=== PATIENT | male | born 1965 | race Caucasian/White ===

== ENCOUNTER 2020-09-03 16:14 | Outpatient (CLI) | payer BC, SELFPAY | END 2020-09-03 16:15 | disposition home or self-care (01) | LOC: ANHCOVIDVC 16:14 | PROVIDERS: PCP Family Medicine | DX: Z23 Encounter for immunization (principal) | CPT/HCPCS: 0001A; 91300 ==

== ENCOUNTER 2020-09-24 16:13 | Outpatient (CLI) | payer BC, SELFPAY | END 2020-09-24 16:14 | disposition home or self-care (01) | LOC: ANHCOVIDVC 16:13 | PROVIDERS: PCP Family Medicine | DX: Z23 Encounter for immunization (principal) | CPT/HCPCS: 0002A; 91300 ==

== ENCOUNTER 2024-10-10 18:12 | Inpatient (IN) | payer OTHER, SELFPAY ==
[2024-10-10] VITALS (12 sets, daily range): BP systolic 131–153; BP diastolic 68–86; PULSE 74–88; RESP 8–20; TEMP 36.4–37.6; O2SAT 94–100; BMI 25.5; BMI 25.4
--- NOTE | 2024-10-10 12:05 | PC.NURSE ---
Report to the Outpatient Waiting Room, entrance under the green pavilion located off [facility], at time _1330_ on date _[phone]_. Planned Procedure Time: _1530_.? Time changes happen often and if your time is changed the preop area will call you the afternoon before. - You and your visitor will be asked to self-screen and do not enter if you have any COVID symptoms. Please call surgeon if you need to reschedule. - A mask is optional within the hospital at this time. Patients may have clear liquids (water, carbonated beverages, clear teas, apple juice) until 3 hours prior to surgery with a maximum of 20 ounces. - No food from midnight until time of surgery and no smoking, or chewing tobacco (or any form of nicotine). No chewing gum, candy or mints. Take only the following medications with a SIP of water on the morning of surgery: ___Amlodipine and Metoprolol. Acetaminophen ok if needed.____ DO NOT STOP ANY OF YOUR OTHER PRESCRIPTION MEDICATIONS PRIOR TO SURGERY EXCEPT THE FOLLOWING Hold all vitamins and supplements for 3 days per anesthesiologist. Medications to discontinue per physician Date to take last dose Please no make-up, nail luxembourger, hairspray, perfume, deodorant, or body powder the day of surgery.? No jewelry (including any body piercings) or valuables the day of surgery, leave them at home.? Please take a shower or bath the night before, or the morning of, surgery with an antibacterial soap.? Wear comfortable, loose fitting clothing.? - Jewelry must be removed prior to entering the operating room.? Rings and piercings that are not removed may be cut off. - The hospital will not accept responsibility for valuables.? - Please leave all valuables, including medications, at home the day of surgery. If you are going home after surgery, a licensed drivers license examiner must drive you home.? - NO public transportation without another adult if you receive anesthesia. - We recommend that an adult stay with you for 24 hours following discharge. - We also recommend that you do not drive, make important decision, drink alcoholic beverages, or take any drugs that were not prescribed by your health care provider for at least 24 hours after your discharge time. Follow any additional instructions given to you from your surgeon. Telephone instructions given to __René___and asked if any additional questions and then verbalized understanding. Patient advised to call surgeon office or pre surgery nurse liaison [phone] if any additional questions.
--- OUTSIDE RECORDS SUMMARY | 2024-10-10 13:31 | XMS_ITS | Clinical Summary ---
Author Organization [facility] Address [address] [place] [address] Care Team Providers Care Wastewater Project Manager Name Role Phone Florian Gregg MD Primary Care Provider [phone] Source Comments [facility],non-owned Affiliates and Associated Physician Practices is amultiple site organization consisting of ambulatory clinics and hospital sitesin [place], [place], [place] and [place]. This disclosure is being madepursuant to the Care Everywhere program and may not contain all information available regarding this patient. 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 Gender Identity Not on file Sexual Orientation Not on file Plan of Treatment Health Maintenance Due Date Last Done Comments COLOGUARD (AGES 45-75) - COL ON CA SCREENING 1965 COLON MONITORING 1965 COLONOSCOPY - COLON CA SCREENING 1965 CT COLONOGRAPHY - COLON CA SCREENING 1965 Colorectal Cancer Screening 1965 FIT - COLON CA SCREENING 1965 FLEX SIG - COLON CA SCREENING 1965 LIPID TESTING 1965 HIV SCREENING 1980 HEPATITIS C SCREENING 09/09/1983 DTAP/TDAP/TD VACCINES (1 - Tdap) 1984 HEPATITIS B VACCINE (1 of 3 - 19+ 3-dose series) 1984 PNEUMOCOCCAL VACCINE 50+ (1 of 1 - PCV) 09/14/2015 ZOSTER VACCINE (1 of 2) 09/14/2015 COVID-19 VACCINE ( - 2023-2 5 season) 2024 DEPRESSION SCREENING 05/22/2024 INFLUENZA VACCINE (Season Ended) 2025 HIB VACCINE Aged Out No longer eligi ble based on patient's age to complete this topic HPV VACCINE Aged Out No longer eligi ble based on patient's age to complete this topic MENINGOCOCCAL (Group B) VACC INE SHARED DECISION-MAKING Aged Out No longer eligibl e based on patient's age to complete this topic MENINGOCOCCAL GROUPS A/C/Y/W VACCINE Aged Out No longer eligible b ased on patient's age to complete this topic [place] [address] [place] [address] Care Teams Wastewater Project Manager Relationship Specialty Start Date End Date Florian Gregg MD [address] [place] [address] PCP - General 09/10/09
--- OUTSIDE RECORDS SUMMARY | 2024-10-10 13:32 | XMS_ITS | Encounter Summary ---
Author Organization [facility] Address [address] [place] [address] Care Team Providers Care Pharmacist In Charge Owner Name Role Phone Florian Gregg MD Primary Care Provider [phone] Encounter Details Date Type Department Care Team (Late st Contact Info) Description 06/06/2023 Lab Requisition [facility] - DermPath Lab [address], [facility] [place] [address] Jaci Teixeira MD [address] [facility] [address] [place] [address] Social History Tobacco Use Types Packs/Day Years Used Date Smoking Tobacco: Never Assessed Sex and Gender Information Value Date Recorded Sex Assigned at Not on file 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 DermPath Lab Received: 06/07/2023 07:34 AM Pathologist: Rosa Hart MD Specimen: Skin, right forearm 11:04 AM OFFICE MACHINES SALES REPRESENTATIVE DERMATOPATHOLOGY LABORATORY Final Diagnosis Specimen A. SKIN, right forearm: SOLAR LENTIGO (L81.4) 11:04 AM [facility] DERMATOPATHOLOGY LABORATORY at [address] [facility] Clinical History R/O Melanoma Nevus Irregular Color 11:04 AM [facility] DERMATOPATHOLOGY LABORATORY Gross Description Specimen A: Received is one formalin filled container labeled with the patient's name and designated right forearm. The specimen consists of a shave biopsy measuring 6x3x1 mm. Jar 0. 11:04 AM [facility] DERMATOPATHOLOGY LABORATORY Microscopic Description Specimen A. SKIN, right forearm: There is orthokeratosis. There is a slight increase in epidermal thickness with lentiginous buds of hyperpigmented keratinocytes. The number of melanocytes is only mildly increased. In the dermis, there is basophilic degeneration of elastic fibers. 11:04 AM [facility] DERMATOPATHOLOGY LABORATORY Disclaimer An external and internal positive and negative controls are appropriate for the histochemical, immunohistochemical and immunofluorescence stain(s) in this case (if any), except where stated explicitly. The performance characteristics of the stain(s) cited in this report were developed and its performance characteristic determined by the Dermatopathology Laboratory at [facility], directed by Dr. Chana Heard. These tests need not be, and therefore are not, approved by the [place] Food and Drug Administration. The tests are used for clinical purposes. Billing Codes Specimen Charges Stain Charges 57661 1 11:04 AM [facility] DERMATOPATHOLOGY LABORATORY Embedded Images 11:04 AM [facility] DERMATOPATHOLOGY LABORATORY Pathology/Cytolo gy TISSUE SPECIMEN FROM SKIN / Unknown 06/06/2023 10:06 AM OFFICE MACHINES SALES REPRESENTATIVE 06/07/2023 7:34 AM [facility] us Jaci Teixeira MD LAB - PATHOLOGY/CYTOLOGY OR DERABLES Final Result DERMATOPATHOLOGY LABORATORY [facility] - Department of Dermatology [address], [address] [phone] documented in this encounter Visit Diagnoses Not on filedocumented in this encounter Care Teams Pharmacist In Charge Owner Relationship Specialty Start Date End Date Florian Gregg MD [address] [place] [address] PCP - General 09/10/09 documented as of this encounter
--- OUTSIDE RECORDS SUMMARY | 2024-10-10 13:32 | XMS_ITS | Clinical Summary ---
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
--- OUTSIDE RECORDS SUMMARY | 2024-10-10 13:32 | XMS_ITS | Clinical Summary ---
Author Organization [facility] Address [address], [facility] [address] [place] [address] Phone Care Team Providers Care Supervisor Blueprinting And Photocopy Name Role Phone Stephany Elmore Primary Care Provider [phone] Allergies Active Allergy Reactions Criticality Noted Date Comments Penicillins Hives,Rash Low 10/03/1977 Medications MULTIPLE VITAMINS PO Take 1 Tablet by mouth daily. Active irbesartan (AVAPRO) 300 MG Tablet Take 300 mg by mouth. 12/07/2013 Active OMEGA-3 FATTY ACIDS PO Take 1 Capsule by mouth daily. Active amLODIPine (NORVASC) 5 MG Tablet 07/16/2024 Active Metoprolol Succinate 50 MG Capsule ER 24 Hour Sprinkle 07/27/2024 Activ e triamcinolone (KENALOG) 0.1 % Cream 07/16/2024 Active Active Problems Problem Noted Date Diagnosed Date Lung mass 07/16/2024 HTN (hypertension) 06/13/2024 Neuroendocrine neoplasm of lung 06/13/2024 Encounters Date Type Department Care Team Description 09/12/2024 1:30 PM CDT Initial Consult [facility] [address] [address] Elissa Nuñez LCPC Need for emotional support (Primary Dx) 09/12/2024 Travel 08/15/2024 10:35 AM CDT Lab [facility] [address] [address] Lab, [facility] [place] Neuroendocrine neoplasm of lung 08/15/2024 10:15 AM CDT Office Visit [facility] [address] [phone] Mariel Schofield APRN, PAT Neuroendocrine neoplasm of lung (Primary Dx) 08/15/2024 Travel 08/05/2024 9:00 AM CDT Lab [facility] [address] [phone] Lab, [facility] [place] Neuroendocrine neoplasm of lung 08/05/2024 Results Follow-Up [facility] [address] [phone] Samy Vela MD CMP (COMPREHENSIVE METABOLIC PANEL) 08/05/2024 Travel 08/02/2024 Results Follow-Up [facility] [address] [phone] Samy Vela MD IRON W/ IRON BINDING CAPACITY [place], CMP (COMPREHENSIVE METABOLIC PANEL), CBC WITH AUTO DIFF [place] 08/01/2024 3:15 PM CDT Lab [facility] [address] [phone] Lab, [facility] [place] Neuroendocrine neoplasm of lung 08/01/2024 3:00 PM CDT Office Visit [facility] [address] [address] Samy Vela MD Neuroendocrine neoplasm of lung (Primary Dx) 08/01/2024 Travel 07/31/2024 Telephone [facility] [address] [address] Samy Vela MD Canopy Call / OV and path report 07/17/2024 Results Follow-Up [facility] [address] [place] [phone] TUMOR IMAGING, NEUROENDOCRINE from Last 3 Months Family History Medical History Relation Name Comments Breast Cancer Mother Breast Cancer Sister Relation Name Status Comments Father Mother Sister Social History Tobacco Use Types Packs/Day Years Used Date Smoking Tobacco: Never Smokeless Tobacco: Current Chew Tobacco Cessation:Ready to Q uit: Not Asked; Counseling Given: Not Answered Alcohol Use Standard Drinks/Week Comments Yes 0 (1 standard drink = 0.6 oz pur e alcohol) socially Sex and Gender Information Value Date Recorded Sex Assigned at Not on file Legal Sex Male 10:55 PM CDT Gender Identity Not on file Sexual Orientation Not on file Last Filed Vital Signs Vital Sign Reading Time Taken Comments Blood Pressure 162/86 08/15/2024 10:11 AM CDT Pulse 74 08/15/2024 10:11 AM CDT Temperature 36.7 C (98 F) 08/15/2024 10:11 AM CDT Respiratory Rate 18 08/15/2024 10:1 1 AM CDT Oxygen Saturation 98% 08/15/2024 10: 11 AM CDT Inhaled Oxygen Concentration - - Weight 87.5 kg (192 lb 12.8 oz) 025 10:11 AM CDT Height 182.9 cm (6') 08/15/2024 10:11 AM CDT Body Mass Index 26.15 08/15/2024 10:11 AM CDT Plan of Treatment Upcoming Encounters Date Type Department Care Team (Late st Contact Info) Description 11/14/2024 10:00 AM CDT Office Visit [facility] [address] [address] Samy Vela MD [facility] [address] [place] [address] Health Maintenance Due Date Last Done Comments Hepatitis C Virus (HCV) Screening 1965 Hepatitis B Immunization (1 of 3 - 19+ 3-dose series) 1984 Pneumococcal Immunization (50+ years) (1 of 2 - PCV) 1984 Zoster Immunization (1 of 2) 1984 Colonoscopy 2010 Colorectal Cancer Screening 2010 Cologuard 09/14/2015 Immunochemical Fecal Occult Blood 09/14/2015 PSA Discussion 2020 SARS-COV-2 Immunization ( season) 2024 05/28/2021, 09/24/2020, 09/03/2020 Influenza Immunization (Season Ended) 2025 05/07/2021, 05/08/2020, 03/30/2018, Additional history exists Respiratory Syncytial Virus (RSV) Immunization (Adult) (1 - 1-dose 75+ series) 2040 TdaP Immunization Completed 03/30/2018 Human Papillomavirus (HPV) Immunization Aged Out No longer eligible based on patient's age to complete this topic Meningococcal Immunization (ACWY) Aged Out No longer eligible based on patient's age to complete this topic Rotavirus Immunization Aged Out No lo nger eligible based on patient's age to complete this topic Procedures Procedure Name Priority Date/Time Associated Diagnosis Comments CBC WITH AUTO DIFF [place] Routine 08/15/2024 11:07 AM CDT CMP (COMPREHENSIVE METABOLIC PANEL) Routine 08/15/2024 11:07 AM CDT Neuroendocrine neoplasm of lung CMP (COMPREHENSIVE METABOLIC PANEL) Routine 08/05/2024 8:58 AM CDT Neuroendocrine neoplasm of lung CBC WITH AUTO DIFF [place] Routine 08/01/2024 3:14 PM CDT CMP (COMPREHENSIVE METABOLIC PANEL) Routine 08/01/2024 3:14 PM CDT Neuroendocrine neoplasm of lung IRON W/ IRON BINDING CAPACITY [place] Routine 08/01/2024 3:14 PM CDT Neuroendocrine neoplasm of lung FERRITIN Routine 08/01/2024 3:14 PM CDT Neuroendocrine neoplasm of lung from Last 3 Months Results * (ABNORMAL) CBC WITH AUTO DIFF [place] (08/15/2024 11:07 AM CDT) Only the most recent of2 resultswithin the time period is included. WBC 5.6 4.0 - 10.0 10*3/uL [facility] HGB 13.7 13.7 - 17.5 g/dL [facility] HCT 41.1 40.1 - 51.0 % [facility] PLT 194 163 - 369 10*3/uL [facility] MPV 9.8 9.4 - 12.4 fL [facility] RBC 4.60(L) 4.63 - 6.08 10*6/uL [facility] MCV 89 79 - 95 fL [facility] MCH 29.8 25.6 - 32.2 pg [facility] MCHC 33.3 32.2 - 36.5 g/dL [facility] RDW 13.8 11.6 - 14.4 % [facility] Neutrophils % 56.6 36.0 - 66.0 % [facility] Lymphocytes % 21.7 19.0 - 40.0 % [facility] Monocytes % 11.4 4.1 - 12.1 % [facility] Eosinophils % 9.2(H) 0.0 - 3.5 % [facility] Basophils % 0.7 0.0 - 1.0 % [facility] Absolute Neutrophils 3.2 1.4 - 6.6 10*3/uL [facility] Absolute Lymphocytes 1.2 0.8 - 4.0 10*3/uL [facility] Absolute Monocytes 0.6 0.2 - 1.2 10*3/uL [facility] Absolute Eosinophils 0.5(H) 0.0 - 0.4 10*3/uL [facility] Absolute Basophils 0.0 0.0 - 0.1 10*3/uL [facility] 08/15/2024 11:0 7 AM CDT us Mariel Schofield BLUE SPLIT TRIMMER, BLOCK CUTTER LAB SEND OUTS Fin al Result [facility] [place] [address], * CMP (COMPREHENSIVE METABOLIC PANEL) (08/15/2024 11:07 AM CDT) Only the most recent of3 resultswithin the time period is included. Glucose 99 70 - 105 mg/dL [facility] Blood Urea Nitrogen 20 7 - 25 mg/dL [facility] Creatinine 0.8 0.7 - 1.3 mg/dL [facility] Sodium 137 136 - 145 mEq/L [facility] Potassium 4.0 3.5 - 5.1 mEq/L [facility] Chloride 103 98 - 107 mEq/L [facility] Bicarbonate 28 21 - 31 mEq/L [facility] Total Bilirubin 1.0 0.3 - 1.0 mg/dL [facility] Alk. Phosphatase 67 34 - 104 U/L [facility] Aspartate Aminotransferase 14 13 - 39 U/L [facility] Alanine Aminotransferase 18 7 - 52 U/L [facility] Total Protein 6.9 6.4 - 8.9 g/dL [facility] Albumin 4.5 3.5 - 5.7 g/dL [facility] Calcium 9.8 8.6 - 10.3 mg/dL [facility] Anion Gap 10.0 7.0 - 15.0 mEq/L [facility] Globulin 2.4 2.0 - 3.5 g/dL [facility] EGFR 102 >60 ml/min/1. 73m2 [facility] Comment: This eGFR is calculated using 2020 CKD-EPI Creatinine equation without race modifier based on the NKF-ASN task force recommendations Equation: wZAN=310*min(SCr/k,1)a*max(SCr/k,1)-1.200*0.9938Age*1.012 (if female), where SCr is serum creatinine, k is 0.7 for females and 0.9 for males, and a is -0.241 for females and -0.302 for males Blood 08/15/2024 11:0 7 AM CDT Narrative [facility] - 08/15/2024 11:55 AM CDT Release to patient->Immediate IS THE PATIENT REQUIRED TO BE FASTING FOR 8 HOURS?->No us Mariel Schofield APRN, CNP CHEMISTRY ORDERABLE S Final Result Performing Organization Address [facility]/ZIP Co de Phone Number [facility] [place] [address], * IRON W/ IRON BINDING CAPACITY [place] (08/01/2024 3:14 PM CDT) IRON 88 50 - 212 ug/dL [facility] UIBC 234 155 - 355 ug/dL [facility] TIBC 322 261 - 478 ug/dl [facility] % Saturation 27 20 - 50 % [facility] Blood 08/01/2024 3:14 PM CDT [facility] - 08/01/2024 3:57 PM CDT Release to patient->Immediate Samy Vela MD LAB SEND OUTS Final Result Performing Organization Address [facility]/ZIP Co de Phone Number [facility] [place] [address], [place] [phone] * (ABNORMAL) FERRITIN (08/01/2024 3:14 PM CDT) Ferritin 777(H) 24 - 336 ng/mL [facility] Blood 08/01/2024 3:14 PM CDT Davian [facility] - 08/02/2024 2:41 PM CDT Release to patient->Immediate Samy Vela MD CHEMISTRY ORDERABLES Final R esult Performing Organization Address [facility]/ZIP Co de Phone Number [facility] [place] [address], [place] [phone] from Last 3 Months Insurance [facility] Care Teams Supervisor Blueprinting And Photocopy Relationship Specialty Start Date End Date Stephany Elmore PA [address] [place] [address] PCP - General Physician Technical Analyst 06/06/24
--- OUTSIDE RECORDS SUMMARY | 2024-10-10 13:32 | XMS_ITS | Referral Summary ---
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
--- OUTSIDE RECORDS SUMMARY | 2024-10-10 13:32 | XMS_ITS | Encounter Summary ---
Author Organization [facility] Address [address] [facility] [place] [address] Care Team Providers Care Food Assembler Kitchen Name Role Phone Florian Gregg MD Primary Care Provider [phone] Encounter Details Date Type Department Care Team (Late st Contact Info) Description 10/12/2022 Lab Requisition [facility] - DermPath Lab [address], [facility] [place] [phone] Kemi Watts DO [address] [facility] [address] [place] [address] Social History Tobacco Use Types Packs/Day Years Used Date Smoking Tobacco: Never Assessed Sex and Gender Information Value Date Recorded Sex Assigned at Not on file 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 Gender Identity Not on file Sexual Orientation Not on file documented as of this encounter Plan of Treatment Not on file documented as of this encounter Procedures Procedure Name Priority Date/Time Associated Diagnosis Comments DERMATOPATHOLOGY Routine 10/12/2022 10:0 2 AM CDT documented in this encounter Results * DERMATOPATHOLOGY (10/12/2022 10:02 AM CDT) Case Report Dermatopathology Report Case: [id number] Authorizing Provider: Kemi Watts DO Collected: 10/12/2022 10:02 AM Ordering Location: [facility] DermPath Lab Received: 10/13/2022 09:18 AM Pathologist: Rosa Hart MD Specimen: Skin, right upper back 5:32 PM CDT DERMATOPATHOLOGY LABORATORY Final Diagnosis Specimen A. SKIN, right upper back: HYPERPLASTIC (HYPERTROPHIC) ACTINIC KERATOSIS, PIGMENTED AND INFLAMED (L57.0) POST-INFLAMMATORY PIGMENT ALTERATION (L81.9) EPIDERMAL NECROSIS SUGGESTIVE OF EXCORIATION (L98.499) (see microscopic description) 3 5:32 PM T DERMATOPATHOLOGY LABORATORY at 1732 CDT Clinical History PIG AK R/O MM 5:32 PM CDT DERMATOPATHOLOGY LABORATORY Gross Description Specimen A: Received is one formalin filled container labeled with the patient's name and designated right upper back. The specimen consists of a shave biopsy measuring 7x7x1 mm. Jar 0. 5:32 PM T DERMATOPATHOLOGY LABORATORY Microscopic Description Specimen A. SKIN, right upper back: There is hyperkeratosis alternating with parakeratosis. There is epidermal hyperplasia with disorderly maturation of keratinocytes with nuclear pleomorphism confined to the lower half of the epidermis. There is prominent pigmentation in some of the keratinocytes. Sections show abundant melanin within melanophages around the superficial vascular plexus. There is a lymphohistiocytic infiltrate within the dermis. The epidermis is focally necrotic and covered with a scale-crust. There is fibrin at the base. 5:32 PM CDT DERMATOPATHOLOGY LABORATORY Disclaimer An external and internal positive and negative controls are appropriate for the histochemical, immunohistochemical and immunofluorescence stain(s) in this case (if any), except where stated explicitly. The performance characteristics of the stain(s) cited in this report were developed and its performance characteristic determined by the Dermatopathology Laboratory at [facility], directed by Dr. Chana Heard. These tests need not be, and therefore are not, approved by the [place] Food and Drug Administration. The tests are used for clinical purposes. Billing Codes Specimen Charges Stain Charges 17584 1 3 5:32 PM CDT DERMATOPATHOLOGY LABORATORY Embedded Images 3 5:32 PM CDT DERMATOPATHOLOGY LABORATORY Pathology/Cytolo gy TISSUE SPECIMEN FROM SKIN / Unknown 10/12/2022 10:02 AM CDT 10/13/2022 9:18 AM CDT Kemi Watts DO LAB - PATHOLOGY/CYTOLOGY ORDERABLES Final Result DERMATOPATHOLOGY LABORATORY [facility] - Department of Dermatology [facility] Specialized Medicine [address] [place] [address], [address]rd [address] [phone] documented in this encounter Visit Diagnoses Not on filedocumented in this encounter Care Teams Food Assembler Kitchen Relationship Specialty Start Date End Date Florian Gregg MD [address] [facility] [address] [facility] [address] [place] [address] PCP - General 09/10/09 documented as of this encounter
--- NOTE | 2024-10-10 13:57 | ECG_ITS ---
Test Date: 2024-10-10 14:09:24 Measurements Intervals [place] Rate: 81 P: 41 CA: 179 QRS: 31 QRSD: 96 T: 10 QT: 369 QTc: 428 Interpretive Statements SINUS RHYTHM No previous ECG available for comparison Electronically Signed On 10-10-2024 14:22:51 CDT by Sawyer Streeter M.D.
[2024-10-10 14:38] LABS: Basophils Absolute Auto 0.1 K/mm3 (0.0-0.1); Basophils Percent Auto 0.3 % (0.2-1.2); Eosinophils Absolute Auto 0.1 K/mm3 (0-0.3); Eosinophils Percent Auto 0.5 % (0-4.4); Hematocrit 41.7 % (42.0-52.0); Hemoglobin 13.5 g/dL (14.0-18.0); Immature Granulocyte Absolute 0.16 K/mm3 (0.00-0.031); Immature Granulocyte Percent A 0.6 % (0-0.5); Lymphocytes Absolute Auto 1.08 K/mm3 (0.9-3.2); Lymphocytes Percent Auto 4.4 % (18.3-44.2); Mean Corpuscular HGB Conc 32.4 g/dl (32-36); Mean Corpuscular Hemoglobin 29.3 pg (26-34); Mean Corpuscular Volume 90.7 fl (80-100); Mean Platelet Volume 9.3 fl (7.4-10.4); Monocytes Absolute Auto 1.4 K/mm3 (0.1-0.6); Monocytes Percent Auto 5.8 % (2.6-8.5); Neutrophils Absolute Auto 21.9 K/mm3 (1.3-6.7); Neutrophils Percent Auto 88.4 % (45.5-73.1); Platelet Count Result 331 k/mm3 (150-375); Red Cell Distribution Width 13.2 % (11.5-14.5); White Blood Count 24.7 K/mm3 (4.5-10.0)
--- NOTE | 2024-10-10 15:06 | P.PNAN_ITS ---
Anes - Initial Pre Proc Eval Procedure: Operation Date: 10/10/24 15:30 Proposed Procedures p Incision and Drainage of Left Hip Abscess Times Two - Abilio Villa MD Date/Time: 10/10/24 15:06 Surgeon: Abilio Villa MD Pre Op Diagnosis: left hip abscess x2 Patient Data Age: 59 Gender: M Height: 1.83 m Weight: 85 kg Last Vital Signs Temp 37.6 C 10/10/24 14:52 Pulse 88 10/10/24 14:52 BP 145/86 H 10/10/24 14:52 Pulse Ox 100 10/10/24 14:52 O2 Del Method Room Air 10/10/24 14:52 Allergies Allergy/AdvReac Type Severity Reaction Status Date / Time Penicillins Allergy Unknown Hives Verified 10/10/24 14:49 Home Medications ?Medication ?Instructions ?Recorded ?Confirmed ?Type irbesartan 300 mg tablet 300 mg PO DAILY #90 tabs 06/21/24 10/10/24 Rx amlodipine 5 mg tablet (Norvasc) 5 mg PO DAILY #90 tabs 07/16/24 10/10/24 Rx metoprolol succinate 50 mg 50 mg PO DAILY 10/10/24 10/10/24 History tablet,extended release 24 hr Laboratory Tests 10/10/24 10/10/24 14:34 14:47 WBC 24.7 H K/mm3 (4.5-10.0) RBC 4.60 M/mm3 (4.6-6.20) Hgb 13.5 L g/dL (14.0-18.0) Hct 41.7 L % (42.0-52.0) MCV 90.7 fl (80-100) MCH 29.3 pg (26-34) MCHC 32.4 g/dl (32-36) RDW 13.2 % (11.5-14.5) Plt Count 331 k/mm3 (150-375) MPV 9.3 fl (7.4-10.4) Immature Gran % (Auto) 0.6 H % (0-0.5) Neut % (Auto) 88.4 H % (45.5-73.1) Lymph % (Auto) 4.4 L % (18.3-44.2) [place] % (Auto) 5.8 % (2.6-8.5) Eos % (Auto) 0.5 % (0-4.4) Baso % (Auto) 0.3 % (0.2-1.2) Lymph # (Auto) 1.08 K/mm3 (0.9-3.2) [place] # (Auto) 1.4 H K/mm3 (0.1-0.6) Eos # (Auto) 0.1 K/mm3 (0-0.3) Baso # (Auto) 0.1 K/mm3 (0.0-0.1) Abs Immat Gran (auto) 0.16 H K/mm3 (0.00-0.031) Absolute Neuts (auto) 21.9 H K/mm3 (1.3-6.7) Absolute Nucleated RBC 0.000 K/mm3 (0.0-0.012) Nucleated RBC % 0.0 % (0.0-0.2) Nasal MRSA (PCR) Pending Patient hx anesthesia problems: none Family hx anesthesia problems: none Results Review: All pre-operative results and documents have been reviewed as part of the pre- operative evaluation. [facility] Past Medical History Medical History Neuroendocrine carcinoma of lung Pure hypercholesterolemia, unspecified HTN (hypertension) Surgical History Surgical History Status post Mohs surgery basal cell carcinoma left cheek 2009 H/O shoulder surgery rotator cuff 1989 Family History Family History Father No problems noted. Mother No problems noted. Social History Social History Smoking status: Never smoker Alcohol intake: current Drinks per week: 7 Substance use: never Substance use type: does not use Do You Feel Safe in your Home?: Yes Lack of Transportation: No Lack of Food: Never True Current Housing: I Have Housing Concerned About Future Housing: No Difficulty Paying Gas/Electric Bills: No Difficulty Paying for Meds: No Currently Unemployed: No Education: Bachelor's Degree Difficulty w/ Childcare or Family Care: No Living arrangements: with family Occupation/Education: retired Gender identity (if verbalized by the patient): Male Sexual Orientation (if Verbalized by the Patient): Straight or Heterosexual Spiritual care concerns: No Anes - Eval Final PreProcedure Day of Procedure 10/10/24 15:06 Patient weight: overweight Heart: regular rate and rhythm Lungs: clear to auscultation Airway: Mallampati scale class II Neurological: alert and oriented Last oral intake: >/= 8 hours ASA classification: III Emergent: no Anesthetic plan: proceed Anesthesia type and monitoring: general LMA and standard monitoring Results Review: All pre-operative results and documents have been reviewed as part of the pre- operative evaluation. Informed Consent: The patient's anesthetic plan and its attendant risks and benefits were discussed with the patient/family/POA. Questions were solicited and answers provided to the satisfaction of the patient/family/POA.
[2024-10-10] MEDS: LACTATED RINGERS 1,000 ML 30 ML IV CONT ×2 (15:10→16:48)
--- NOTE | 2024-10-10 15:17 | WPDHPUPDATE1 ---
History and Physical Update Update Date/Time: 10/10/24 15:17 History and Physical has been reviewed, including an updated exam of the patient. There are NO changes in the patient's condition. Risks, benefits, and alternatives have been discussed and questions answered. Patient agrees to proceed with procedure.
[2024-10-10] MEDS: ceFAZolin 2 GM/D5W 50 ML 2 GM/50 ML BAG IVPB (15:43)
[2024-10-10 16:11] LABS: MRSA (PCR) NOT DETECTED (NOT DETECTE)
[2024-10-10] MEDS: BUPIVACAINE/EPINEPHRINE 0.5% 50 ML VIAL 30 ML INFILTRATE (16:15)
--- NOTE | 2024-10-10 16:25 | SUR.OPER ---
Left buttocks 5 x 3 x 5 - 1.7 cm deep
--- NOTE | 2024-10-10 16:29 | SUR.OPER ---
Normalgel Ag Silver Atimicrobial Wound Gel to left buttocks and leg
--- NOTE | 2024-10-10 16:34 | SUR.OPER ---
Left thigh 3.5 1.2 - 1 cm deep
--- NOTE | 2024-10-10 16:36 | SUR.OPER ---
Trocanteric Ulcer 1.5x1.0x0.5 cm
[2024-10-10] MEDS: fentaNYL CITRATE INJ (*CRX) 100 MCG/2 ML VIAL 25 MCG IV PUSH ×2 (17:51→17:54)
[2024-10-10] MEDS: VANCOMYCIN 1,250 MG/NS 250 ML 1,250 MG/250 ML BAG 166.67 MG IVPB (18:11)
--- NOTE | 2024-10-10 18:21 | ADMGEN ---
This patient, René Nunez, was admitted to 3 Med Surg Room 315-02. Patient/family oriented to hospital policies and general routines including ID bracelet, bed and alarms, visiting hours, pain management, procedures, bathroom and other care routines, personal items, smoking policy, room service/diet, and visiting hours. Information on how to activate the Rapid Response Team has been discussed. Patient/Family are encouraged to report perceived risks to care and to ask questions if they do not understand what they are told or what they should do.
[2024-10-10 18:55] LABS: Estimated CRCL calculation 102 ml/min; Estimated Glomerular Filt Rate > 60
--- NOTE | 2024-10-10 19:57 | W.PM.PROC2 ---
Procedure Note - Detailed Date of Procedure 10/10/24 Pre-op Diagnosis left hip abscess x2 Post-op Diagnosis Other (Necrotizing soft tissue infection left hip) Procedure Performed Excisional debridement left hip skin subcutaneous and muscle 30 cm cubed. Surgeon Abilio Villa MD Anesthesia General (LMA) Indications Patient presented 7 days ago for an office visit regarding an abscess or infected wound on his left hip. He was noted to have necrotic tissue and a necrotizing soft tissue infection which already appeared to be limited to the necrotic tissue present. I debrided the necrotic tissue as well as any additional tissue compromised by subcutaneous tracking. This was done in the office. This wound was healing well but patient called the office this morning saying he had to new infections in the same area and they were very painful. He came to the office and was noted to have 2 abscesses only a few cm away from the original infection. The left buttocks wound had some purulent fluid and was cultured in the office. He is taken to surgery now for drainage of these abscesses. Findings Both of these were actually recurrences of the necrotizing toss soft tissue infection that resulted in his initial wound. Excisional debridement of skin subcutaneous and some muscle was required to remove the infected tissue and purulent fluid. Even some of the initial wound which appeared to be pink healthy and healing nicely showed some evidence of tunneling at its distal aspect and required some additional debridement. Description of Procedure Patient was taken to surgery and anesthesia was introduced. He was placed in right lateral decubitus positions of left hip area was easily available. The dressings placed in the office earlier today were completely removed. Prep and drape was carried out. I started with the thigh infection. I excised the necrotic apex of this wound. Purulent fluid was found but also tracking was found. I cultured the wound for Gram stain aerobes and anaerobes. I probed the wound and found the direction of the tracking. I opened the wound further over the undermined skin. There was quite a bit of purulence and liquefaction necrosis in the area. I had to excise overlying skin to eradicate the infection. Subcutaneous and some muscle also was excised. I circumferentially went around the wound applying pressure and finding more tunneling and purulent fluid. I continued the excisional debridement until there was no further purulent fluid I could express. I then turned my attention to the buttocks infection. There was necrotic area on the apex of this infection as well. I removed the necrotic area. Purulent fluid was seen and was cultured. There was numerous pockets and tracking on this wound much worse than the hip wound. I unroof the various tracts and debrided additional skin. I applied pressure to the outer margins of the wound and found more tracking by purulent fluid coming forth. I continued excising more of the skin subcutaneous and some muscle until there was no purulent fluid seen or expressed by palpation circumferentially around the wound. I then looked closely at the initial wound which was pink and healing. I did notice some purulent drainage from the posterior aspect of this wound to. I probed this and found some tracking posteriorly. I opened an area to excise this infection and tract. The size of this debridement was 1.5 x 1 x 0.5 cm of skin subcutaneous and muscle. The buttocks infection, much larger was 5 x 3 x 1.7 cm. The proximal thigh infection debridement was 3.5 x 1.2 x 1 cm. All these sizes added together came to 30.45 cm 3. Hemostasis was achieved at all wounds. The thigh and buttocks wounds were packed with 2 in iodoform Nu Gauze. The greater trochanter initial wound was dressed with silver gel and 4 x 4 gauze. 4x4s and ABDs were then placed over all the wounds. Medipore tape was used. The patient was returned to a supine position and transferred to recovery in good condition. Sponge and needle counts were correct x2. Estimated Blood Loss -30 Drains No Packing Yes (2 in iodoform Nu Gauze) Pathology Other (Cultures sent from each new wound) Complications None Condition Stable Disposition PACU [facility] Billing Surgery - Charge Forward: Surgery Billing (Excisional debridement skin, subcutaneous, muscle left hip 30 cm cubed)
[2024-10-10] MEDS: MEROPENEM 1 GM/NS 100 ML 1 GM/100 ML BAG IVPB (20:02)
[2024-10-10] MEDS: FAMOTIDINE 20 MG TABLET PO (20:03)
[2024-10-10] MEDS: CLINDAMYCIN 900 MG/D5W 50 ML 900 MG/50 ML PIGGYBACK 50 MG IVPB (20:38)
[2024-10-10] MEDS: VANCOMYCIN 1,000 MG/NS 250 ML 1,000 MG/250 ML BAG 125 MG IVPB (21:36)
[2024-10-10] MEDS: LACTATED RINGERS 1,000 ML 100 ML IV CONT (23:50)
[2024-10-11 03:57] VITALS: BP 114/70; PULSE 69; RESP 20; TEMP 36.6; O2SAT 98
[2024-10-11] MEDS: MEROPENEM 1 GM/NS 100 ML 1 GM/100 ML BAG IVPB ×3 (05:51→23:55)
[2024-10-11 06:07] LABS: Hematocrit 34.9 % (42.0-52.0); Hemoglobin 11.3 g/dL (14.0-18.0); Mean Corpuscular HGB Conc 32.4 g/dl (32-36); Mean Corpuscular Hemoglobin 29.2 pg (26-34); Mean Corpuscular Volume 90.2 fl (80-100); Mean Platelet Volume 9.4 fl (7.4-10.4); Platelet Count Result 322 k/mm3 (150-375); Red Blood Count 3.87 M/mm3 (4.6-6.20); Red Cell Distribution Width 13.4 % (11.5-14.5); White Blood Count 19.9 K/mm3 (4.5-10.0)
[2024-10-11 06:22] LABS: Prothrombin Time 13.8 Seconds (11.1-14.7)
[2024-10-11 06:23] LABS: Partial Thromboplastin Time 33.9 Seconds (22.3-36.8)
[2024-10-11 06:30] LABS: Alanine Aminotransferase 16 U/L (6-50); Albumin Level 3.7 g/dL (3.5-5.1); Alkaline Phosphatase 66 U/L (38-126); Anion Gap 9 mmol/L (4-12); Aspartate Amino Transferase 19 U/L (17-59); Bilirubin,Total 0.4 mg/dL (0.2-1.3); Blood Urea Nitrogen 15 mg/dL (9-20); Calcium 8.8 mg/dL (8.4-10.2); Carbon Dioxide 24 mmol/L (22-30); Chloride 102 mmol/L (98-107); Estimated CRCL calculation 98 ml/min; Estimated Glomerular Filt Rate > 60; Glucose 121 mg/dL (65-110); Potassium 4.4 mmol/L (3.4-5.0); Sodium 135 mmol/L (137-145)
[2024-10-11] MEDS: CLINDAMYCIN 900 MG/D5W 50 ML 900 MG/50 ML PIGGYBACK 50 MG IVPB ×3 (06:30→22:46)
[2024-10-11 06:42] LABS: CRP 11.7 mg/dL (<1.0)
[2024-10-11] MEDS: VANCOMYCIN 1,500 MG/NS 500 ML 1,500 MG/500 ML BAG 125 MG IVPB (07:16)
[2024-10-11 07:57] VITALS: BP 142/76; PULSE 78; RESP 18; TEMP 36.2; O2SAT 99
[2024-10-11] MEDS: METOPROLOL SUCCINATE EXT REL 50 MG TABCR PO (08:24)
[2024-10-11] MEDS: ENOXAPARIN 40 MG/0.4 ML SYRINGE SUB-Q (08:24)
[2024-10-11] MEDS: IRBESARTAN 150 MG TABLET 300 MG PO (08:24)
[2024-10-11] MEDS: FAMOTIDINE 20 MG TABLET PO ×2 (08:24→21:19)
[2024-10-11] MEDS: amLODIPine BESYLATE 5 MG TABLET PO (08:36)
[2024-10-11 11:57] VITALS: BP 137/80; PULSE 62; RESP 18; TEMP 36.3; O2SAT 100
--- NOTE | 2024-10-11 13:13 | P.PNINF_ITS ---
Pharmacy ID Consult Stewardship Interventions Pharmacy ID Note: Subjective Pharmacy was consulted by Dr. Villa regarding infectious diseases for René Nunez. René Nunez is a 59 year old M with concerns regarding necrotizing soft tissue wound infection. Background The patient is currently receiving clindamycin D1 of coverage as 2 doses in, meropenem and vancomycin IV also D1. The patient's PMH includes recent debridement of infected wound with necrotizing component. Then recently, per discussion with consulting provider, patient had two more wounds appear similar with tunneling properties and involving some nerotization of the soft tissues. Additionally, the patient went for debridement on 10/10 of these two infected areas and the previously debrided area received additional debridement. Excision involved skin and muscle with infected tissue and purulent fluid. WBC improved to 19.9 from 24.7 yesterday. Microbiology: 10/10: Blood culture: Pending 10/10: Blood culture: Pending 10/10: Wound culture - Buttock: Growth Pending - Rare GPCs in clusters and Rare W BC seen in culture 10/10: Wound culture - Left Thigh: Growth Pending - Rare GPCs in clusters and Moderate WBC seen in culture Assessment/Recommendation/Discussion Spoke briefly with consulting provider. Patient currently receiving Meropenem, Vancomycin and IV Clindamycin for necrotizing fasciitis and other actively necrotizing SSTI for the coverage including S. aureus including MRSA, S. pyogenes, and Clostridial species, while also providing coverage for other anaerobic pathogens, and Vibrio/Aeromonas spp. The IV clindamycin is on board for an anti-toxin effect that can be used by certain bacteria to further degrade skin and as this patient is s/p debridement and not in active shock will put 6 total dose duration for clindamycin (48 hours of coverage). Continue meropenem and vancomycin broad-spectrum coverage and de-escalate based on cultures and clinical improvement. Notably, gram stain of both wound cultures are showing GPC's - likely pointing towards a Staphylococcus etiology - but given early - follow for confirmation that this is monomicrobial. Will continue to follow. Please reach out if any additional information comes to light or should you have any questions. Thank you for the interesting consult. Moses Singh, PharmD Infectious Disease/Antimicrobial Stewardship Pharmacist 10/11/24; 1313 WBC 19.9 K/mm3 (4.5-10.0) H 10/11/24 05:46 Creatinine 0.77 mg/dL (0.7-1.3) 10/11/24 05:46 Estim Creat Clear Calc 98 ml/min 10/11/24 05:46
--- NOTE | 2024-10-11 14:33 | P.PNGS_ITS ---
Progress Note: A&P Assessment and Plan (1) Necrotizing soft tissue infection: Code(s): M79.89 - Other specified soft tissue disorders Status: Acute Assessment and Plan: New sites infection debrided yesterday and look good--no new necrosis or purulent drainage noted. Initial wound pink and healing. Discussed antibiotics with Moses GLEASON, pharmacist. Continue present antibiotics. Taper when cultures back. Want to avoid further recurrences. Gram stain suggests staphlyococci. Cont to loosely pack new wounds with iodoform nugauze, initial wound with silver gel, both daily. WBC down to 13.9, CRP 11.7. (2) Open wound of left hip: Code(s): S71.002A - Unspecified open wound, left hip, initial encounter Status: Acute Assessment and Plan: Continue wound care as above. Subjective Subjective Date/Time Seen: 10/11/24 14:33 Post Op day: 1 Patient reports: no new complaints, still having pain, tolerating a regular diet, voiding w/o difficulty and afebrile Exam Const: General: cooperative, comfortable, alert and awake Extrem: Left lower extremity: hip/thigh (wounds look good, no new purulence or necrosis. Serosanguinous drainage) Details: tenderness; no ecchymosis and no crepitus Objective Data Vital Signs Vital Signs: Vital Signs - 24 hr 10/10/24 14:52 10/10/24 16:48 10/10/24 17:03 Temperature 37.6 C 37.4 C Pulse Rate 88 83 82 Respiratory Rate 13 8 L Blood Pressure 145/86 H 133/80 140/75 Pulse Oximetry 100 100 99 Oxygen Delivery Room Air Simple Face Mask Simple Face Mask Oxygen Flow Rate 8 8 10/10/24 17:18 10/10/24 17:33 10/10/24 17:45 Temperature 37.1 C Pulse Rate 80 81 78 Respiratory Rate 9 L 14 14 Blood Pressure 146/81 H 143/75 H 142/86 H Pulse Oximetry 100 100 100 Oxygen Delivery Room Air Room Air Room Air Oxygen Flow Rate 10/10/24 18:00 10/10/24 18:53 10/10/24 18:57 Temperature 36.4 C L 36.7 C Pulse Rate 77 79 80 Respiratory Rate 12 16 Blood Pressure 144/75 H 153/77 H 131/68 Pulse Oximetry 100 97 94 Oxygen Delivery Room Air Oxygen Flow Rate 10/10/24 19:57 10/10/24 20:00 10/10/24 23:57 Temperature 36.9 C 36.5 C Pulse Rate 80 80 74 Respiratory Rate 20 20 20 Blood Pressure 131/80 138/73 Pulse Oximetry 94 94 98 Oxygen Delivery Room Air Oxygen Flow Rate 10/11/24 03:57 10/11/24 07:57 10/11/24 08:20 Temperature 36.6 C 36.2 C L Pulse Rate 69 78 Respiratory Rate 20 18 Blood Pressure 114/70 142/76 H Pulse Oximetry 98 99 Oxygen Delivery Room Air Oxygen Flow Rate 10/11/24 11:57 Temperature 36.3 C L Pulse Rate 62 Respiratory Rate 18 Blood Pressure 137/80 Pulse Oximetry 100 Oxygen Delivery Oxygen Flow Rate Intake/Output Intake/Output: Intake & Output 10/08/24 10/09/24 10/10/24 10/11/24 23:59 23:59 23:59 23:59 Intake Total 900 2440 Balance 900 2440 Meds/Results Medications: Active Medications Generic Name Dose Route Start Last Admin Trade Name Freq PRN Reason Stop Dose Admin Acetaminophen 500 mg 10/10/24 18:12 Acetaminophen 500 Mg Tablet PO Q6H PRN Pain Rated 1-3 Amlodipine Besylate 5 mg 10/11/24 09:00 10/11/24 08:36 Amlodipine Besylate 5 Mg Tablet PO 5 mg DAILY GREG Administration Enoxaparin Sodium 40 mg 10/11/24 09:00 10/11/24 08:24 Enoxaparin 40 Mg/0.4 Ml Syringe SUB-Q 40 mg DAILY GREG Administration Famotidine 20 mg 10/10/24 21:00 10/11/24 08:24 Famotidine 20 Mg Tablet PO 20 mg Q12HR GREG Administration Ibuprofen 800 mg in 200 mls @ 400 mls/hr 10/10/24 18:12 Caldolor 800 Mg/200 Ml IVPB Q6H PRN Breakthrough Pain Rated 1-3 or NPO Meropenem 1 gm in 100 mls @ 200 mls/hr 10/11/24 06:00 10/11/24 13:15 IVPB 200 mls/hr Q8H GREG Administration Clindamycin Phosphate 900 mg in 50 mls @ 50 mls/hr 10/11/24 06:00 10/11/24 13:51 Cleocin 900 Mg/D5w 50 Ml IVPB 10/12/24 14:59 50 mls/hr Q8H GREG Administration Vancomycin HCl 1,500 mg in 500 mls @ 250 mls/hr 10/11/24 08:00 10/11/24 11:15 Vancomycin 1,500 Mg/Ns 500 Ml IVPB Infused Q12H GREG Infusion Irbesartan 300 mg 10/11/24 09:00 10/11/24 08:24 Irbesartan 150 Mg Tablet PO 300 mg DAILY GREG Administration Metoprolol Succinate 50 mg 10/11/24 09:00 10/11/24 08:24 Metoprolol Succinate Ext Rel 50 Mg Tabcr PO 50 mg DAILY GREG Administration Morphine Sulfate 1 mg 10/10/24 18:12 Morphine Sulfate (*Crx) 2 Mg/Ml Inj IV PUSH Q2H PRN Breakthrough Pain Rated 4-6 or NPO Morphine Sulfate 2 mg 10/10/24 18:16 Morphine Sulfate (*Crx) 2 Mg/Ml Inj IV PUSH Q2H PRN Breakthrough Pain Rated 7-10 or NPO Ondansetron HCl 4 mg 10/10/24 18:12 Ondansetron Inj 4 Mg/2 Ml Vial IV PUSH Q4H PRN Nausea And Vomiting Oxycodone/Acetaminophen 1 tablet 10/10/24 18:12 Oxycodone/Acetaminophen (*Crx) 5-325 Mg Tablet PO Q4H PRN Pain Rated 4-6 Oxycodone/Acetaminophen 1 tab 10/10/24 18:12 Oxycodone/Acetaminophen (*Crx) 10-325 Mg Tablet PO Q6H PRN Pain Rated 7-10 Labs Labs: Laboratory Results - last 24 hr 10/10/24 10/10/24 10/10/24 14:34 14:47 18:38 WBC 24.7 H RBC 4.60 Hgb 13.5 L Hct 41.7 L MCV 90.7 MCH 29.3 MCHC 32.4 RDW 13.2 Plt Count 331 MPV 9.3 Immature Gran % (Auto) 0.6 H Neut % (Auto) 88.4 H Lymph % (Auto) 4.4 L [place] % (Auto) 5.8 Eos % (Auto) 0.5 Baso % (Auto) 0.3 Lymph # (Auto) 1.08 [place] # (Auto) 1.4 H Eos # (Auto) 0.1 Baso # (Auto) 0.1 Abs Immat Gran (auto) 0.16 H Absolute Neuts (auto) 21.9 H Absolute Nucleated RBC 0.000 Nucleated RBC % 0.0 PT INR APTT Sodium Potassium Chloride Carbon Dioxide Anion Gap BUN Creatinine 0.74 Estim Creat Clear Calc 102 Estimated GFR > 60 Glucose Calcium Total Bilirubin AST ALT Alkaline Phosphatase C-Reactive Protein Total Protein Albumin Nasal MRSA (PCR) Not detected 10/11/24 05:46 WBC 19.9 H RBC 3.87 L Hgb 11.3 L Hct 34.9 L MCV 90.2 MCH 29.2 MCHC 32.4 RDW 13.4 Plt Count 322 MPV 9.4 Immature Gran % (Auto) Neut % (Auto) Lymph % (Auto) [place] % (Auto) Eos % (Auto) Baso % (Auto) Lymph # (Auto) [place] # (Auto) Eos # (Auto) Baso # (Auto) Abs Immat Gran (auto) Absolute Neuts (auto) Absolute Nucleated RBC Nucleated RBC % PT 13.8 INR 1.0 APTT 33.9 Sodium 135 L Potassium 4.4 Chloride 102 Carbon Dioxide 24 Anion Gap 9 BUN 15 Creatinine 0.77 Estim Creat Clear Calc 98 Estimated GFR > 60 Glucose 121 H Calcium 8.8 Total Bilirubin 0.4 AST 19 ALT 16 Alkaline Phosphatase 66 C-Reactive Protein 11.7 H Total Protein 7.0 Albumin 3.7 Nasal MRSA (PCR)
[2024-10-11 15:57] VITALS: BP 128/70; PULSE 60; RESP 18; TEMP 36.1; O2SAT 100
[2024-10-11] MEDS: VANCOMYCIN 1,500 MG/NS 500 ML 1,500 MG/500 ML BAG 250 MG IVPB (19:56)
[2024-10-11 19:57] VITALS: BP 142/66; PULSE 65; RESP 16; TEMP 36.5; O2SAT 97
[2024-10-11 20:00] VITALS: O2SAT 97
[2024-10-12 01:00] VITALS: BP 141/71; PULSE 65; RESP 16; TEMP 36.4; O2SAT 97
[2024-10-12] MEDS: MEROPENEM 1 GM/NS 100 ML 1 GM/100 ML BAG IVPB ×3 (05:47→21:06)
[2024-10-12] MEDS: CLINDAMYCIN 900 MG/D5W 50 ML 900 MG/50 ML PIGGYBACK 50 MG IVPB ×2 (06:26→15:16)
[2024-10-12 06:51] VITALS: BP 142/76; PULSE 60; RESP 16; TEMP 36.6; O2SAT 99
[2024-10-12 07:10] LABS: Basophils Absolute Auto 0.1 K/mm3 (0.0-0.1); Basophils Percent Auto 0.8 % (0.2-1.2); Eosinophils Absolute Auto 0.3 K/mm3 (0-0.3); Eosinophils Percent Auto 3.9 % (0-4.4); Hematocrit 35.2 % (42.0-52.0); Hemoglobin 11.6 g/dL (14.0-18.0); Immature Granulocyte Absolute 0.03 K/mm3 (0.00-0.031); Immature Granulocyte Percent A 0.4 % (0-0.5); Lymphocytes Absolute Auto 2.11 K/mm3 (0.9-3.2); Lymphocytes Percent Auto 26.8 % (18.3-44.2); Mean Corpuscular Hemoglobin 29.7 pg (26-34); Mean Platelet Volume 9.5 fl (7.4-10.4); Monocytes Absolute Auto 0.7 K/mm3 (0.1-0.6); Monocytes Percent Auto 8.5 % (2.6-8.5); Neutrophils Absolute Auto 4.7 K/mm3 (1.3-6.7); Neutrophils Percent Auto 59.6 % (45.5-73.1); Platelet Count Result 267 k/mm3 (150-375); Red Blood Count 3.91 M/mm3 (4.6-6.20); Red Cell Distribution Width 13.3 % (11.5-14.5); White Blood Count 7.9 K/mm3 (4.5-10.0)
[2024-10-12 07:33] LABS: Anion Gap 8 mmol/L (4-12); Blood Urea Nitrogen 15 mg/dL (9-20); CRP 4.9 mg/dL (<1.0); Carbon Dioxide 30 mmol/L (22-30); Chloride 101 mmol/L (98-107); Estimated CRCL calculation 96 ml/min; Estimated Glomerular Filt Rate > 60; Glucose 94 mg/dL (65-110); Potassium 4.2 mmol/L (3.4-5.0); Sodium 139 mmol/L (137-145)
[2024-10-12 07:48] LABS: Vancomycin Trough 12.7 ug/mL (10.0-20.0)
[2024-10-12] MEDS: METOPROLOL SUCCINATE EXT REL 50 MG TABCR PO (09:03)
[2024-10-12] MEDS: amLODIPine BESYLATE 5 MG TABLET PO (09:03)
[2024-10-12] MEDS: IRBESARTAN 150 MG TABLET 300 MG PO (09:03)
[2024-10-12] MEDS: VANCOMYCIN 2,000 MG/NS 500 ML 2,000 MG/500 ML BAG 250 MG IVPB (09:03)
[2024-10-12] MEDS: FAMOTIDINE 20 MG TABLET PO ×2 (09:04→21:06)
[2024-10-12] MEDS: ENOXAPARIN 40 MG/0.4 ML SYRINGE SUB-Q (09:04)
--- NOTE | 2024-10-12 12:26 | P.PNGS_ITS ---
Progress Note: A&P Assessment and Plan (1) Necrotizing soft tissue infection: Code(s): M79.89 - Other specified soft tissue disorders Status: Acute Assessment and Plan: * Infection appears adequately debrided and controlled at this time. Cultures growing Staph aureus but final sensitivities pending. Continue local wound care. Possibly home in the next 1-2 days once sensitivities come back. (2) Open wound of left hip: Code(s): S71.002A - Unspecified open wound, left hip, initial encounter Status: Acute Assessment and Plan: Continue wound care as above. Subjective Subjective Date/Time Seen: 10/12/24 12:26 Interval history: Patient doing well. Dressing changed at bedside and he tolerated this. No worsening pain, fevers, or worsening redness. Exam Skin: Other: Left hip/thigh dressing changed. Good granulation tissue along each of the wound beds. Minimal serous drainage. No surrounding erythema or tracking. Objective Data Vital Signs Vital Signs: Vital Signs - 24 hr 10/11/24 15:57 10/11/24 19:57 10/11/24 20:00 Temperature 97.0 F L 97.7 F Pulse Rate 60 65 Respiratory Rate 18 16 Blood Pressure 128/70 142/66 H Pulse Oximetry 100 97 Oxygen Delivery Room Air 10/11/24 20:00 10/12/24 01:00 10/12/24 06:51 Temperature 97.6 F 97.8 F Pulse Rate 65 60 Respiratory Rate 16 16 Blood Pressure 141/71 H 142/76 H Pulse Oximetry 97 97 99 Oxygen Delivery Room Air 10/12/24 09:00 Temperature Pulse Rate Respiratory Rate Blood Pressure Pulse Oximetry Oxygen Delivery Room Air Intake/Output Intake/Output: Intake & Output 10/09/24 10/10/24 10/11/24 10/12/24 23:59 23:59 23:59 23:59 Intake Total 900 3520 600 Balance 900 3520 600 Meds/Results Medications: Active Medications Generic Name Dose Route Start Last Admin Trade Name Freq PRN Reason Stop Dose Admin Acetaminophen 500 mg 10/10/24 18:12 Acetaminophen 500 Mg Tablet PO Q6H PRN Pain Rated 1-3 Amlodipine Besylate 5 mg 10/11/24 09:00 10/12/24 09:03 Amlodipine Besylate 5 Mg Tablet PO 5 mg DAILY GREG Administration Enoxaparin Sodium 40 mg 10/11/24 09:00 10/12/24 09:04 Enoxaparin 40 Mg/0.4 Ml Syringe SUB-Q 40 mg DAILY GREG Administration Famotidine 20 mg 10/10/24 21:00 10/12/24 09:04 Famotidine 20 Mg Tablet PO 20 mg Q12HR GREG Administration Ibuprofen 800 mg in 200 mls @ 400 mls/hr 10/10/24 18:12 Caldolor 800 Mg/200 Ml IVPB Q6H PRN Breakthrough Pain Rated 1-3 or NPO Meropenem 1 gm in 100 mls @ 200 mls/hr 10/11/24 06:00 10/12/24 06:17 IVPB Infused Q8H GREG Infusion Clindamycin Phosphate 900 mg in 50 mls @ 50 mls/hr 10/11/24 06:00 10/12/24 06:26 Cleocin 900 Mg/D5w 50 Ml IVPB 10/12/24 14:59 50 mls/hr Q8H GREG Administration Vancomycin HCl 2,000 mg in 500 mls @ 250 mls/hr 10/12/24 09:00 10/12/24 09:03 Vancomycin 2,000 Mg/Ns 500 Ml IVPB 250 mls/hr Q12H GREG Administration Irbesartan 300 mg 10/11/24 09:00 10/12/24 09:03 Irbesartan 150 Mg Tablet PO 300 mg DAILY GREG Administration Metoprolol Succinate 50 mg 10/11/24 09:00 10/12/24 09:03 Metoprolol Succinate Ext Rel 50 Mg Tabcr PO 50 mg DAILY GREG Administration Morphine Sulfate 1 mg 10/10/24 18:12 Morphine Sulfate (*Crx) 2 Mg/Ml Inj IV PUSH Q2H PRN Breakthrough Pain Rated 4-6 or NPO Morphine Sulfate 2 mg 10/10/24 18:16 Morphine Sulfate (*Crx) 2 Mg/Ml Inj IV PUSH Q2H PRN Breakthrough Pain Rated 7-10 or NPO Ondansetron HCl 4 mg 10/10/24 18:12 Ondansetron Inj 4 Mg/2 Ml Vial IV PUSH Q4H PRN Nausea And Vomiting Oxycodone/Acetaminophen 1 tablet 10/10/24 18:12 Oxycodone/Acetaminophen (*Crx) 5-325 Mg Tablet PO Q4H PRN Pain Rated 4-6 Oxycodone/Acetaminophen 1 tab 10/10/24 18:12 Oxycodone/Acetaminophen (*Crx) 10-325 Mg Tablet PO Q6H PRN Pain Rated 7-10 Labs Labs: Laboratory Results - last 24 hr 10/12/24 07:00 WBC 7.9 RBC 3.91 L Hgb 11.6 L Hct 35.2 L MCV 90.0 MCH 29.7 MCHC 33.0 RDW 13.3 Plt Count 267 MPV 9.5 Immature Gran % (Auto) 0.4 Neut % (Auto) 59.6 Lymph % (Auto) 26.8 [place] % (Auto) 8.5 Eos % (Auto) 3.9 Baso % (Auto) 0.8 Lymph # (Auto) 2.11 [place] # (Auto) 0.7 H Eos # (Auto) 0.3 Baso # (Auto) 0.1 Abs Immat Gran (auto) 0.03 Absolute Neuts (auto) 4.7 Absolute Nucleated RBC 0.000 Nucleated RBC % 0.0 Sodium 139 Potassium 4.2 Chloride 101 Carbon Dioxide 30 Anion Gap 8 BUN 15 Creatinine 0.79 Estim Creat Clear Calc 96 Estimated GFR > 60 Glucose 94 Calcium 9.0 C-Reactive Protein 4.9 H Vancomycin Trough 12.7
[2024-10-12 14:00] VITALS: BP 150/79; PULSE 64; RESP 16; TEMP 36.5; O2SAT 99
[2024-10-12 20:00] VITALS: PULSE 61; RESP 13; O2SAT 99
[2024-10-12 20:25] VITALS: PULSE 64; O2SAT 97
[2024-10-12 20:41] VITALS: BP 160/84; PULSE 61; RESP 13; TEMP 36.4; O2SAT 99
[2024-10-12] MEDS: VANCOMYCIN 2,000 MG/NS 500 ML 2,000 MG/500 ML BAG 125 MG IVPB (21:51)
[2024-10-13 05:38] LABS: Basophils Absolute Auto 0.1 K/mm3 (0.0-0.1); Eosinophils Absolute Auto 0.5 K/mm3 (0-0.3); Eosinophils Percent Auto 6.6 % (0-4.4); Hematocrit 35.6 % (42.0-52.0); Hemoglobin 11.8 g/dL (14.0-18.0); Immature Granulocyte Absolute 0.03 K/mm3 (0.00-0.031); Immature Granulocyte Percent A 0.4 % (0-0.5); Lymphocytes Absolute Auto 1.99 K/mm3 (0.9-3.2); Lymphocytes Percent Auto 29.2 % (18.3-44.2); Mean Corpuscular HGB Conc 33.1 g/dl (32-36); Mean Corpuscular Hemoglobin 29.4 pg (26-34); Mean Corpuscular Volume 88.8 fl (80-100); Mean Platelet Volume 9.3 fl (7.4-10.4); Monocytes Absolute Auto 0.7 K/mm3 (0.1-0.6); Monocytes Percent Auto 9.8 % (2.6-8.5); Neutrophils Absolute Auto 3.6 K/mm3 (1.3-6.7); Platelet Count Result 346 k/mm3 (150-375); Red Blood Count 4.01 M/mm3 (4.6-6.20); Red Cell Distribution Width 13.1 % (11.5-14.5); White Blood Count 6.8 K/mm3 (4.5-10.0)
[2024-10-13] MEDS: MEROPENEM 1 GM/NS 100 ML 1 GM/100 ML BAG IVPB (05:45)
[2024-10-13 05:54] VITALS: BP 148/96; PULSE 63; RESP 12; TEMP 36.4; O2SAT 98
[2024-10-13 05:55] LABS: Anion Gap 7 mmol/L (4-12); Blood Urea Nitrogen 13 mg/dL (9-20); CRP 2.6 mg/dL (<1.0); Calcium 9.3 mg/dL (8.4-10.2); Carbon Dioxide 28 mmol/L (22-30); Chloride 102 mmol/L (98-107); Estimated CRCL calculation 98 ml/min; Estimated Glomerular Filt Rate > 60; Glucose 94 mg/dL (65-110); Potassium 4.1 mmol/L (3.4-5.0); Sodium 137 mmol/L (137-145)
[2024-10-13 07:58] VITALS: O2SAT 96
[2024-10-13] MEDS: ENOXAPARIN 40 MG/0.4 ML SYRINGE SUB-Q (08:32)
[2024-10-13] MEDS: VANCOMYCIN 2,000 MG/NS 500 ML 2,000 MG/500 ML BAG 250 MG IVPB (08:32)
[2024-10-13] MEDS: FAMOTIDINE 20 MG TABLET PO (08:33)
[2024-10-13] MEDS: amLODIPine BESYLATE 5 MG TABLET PO (08:33)
[2024-10-13] MEDS: IRBESARTAN 150 MG TABLET 300 MG PO (08:33)
[2024-10-13] MEDS: METOPROLOL SUCCINATE EXT REL 50 MG TABCR PO (08:33)
[2024-10-13 14:00] VITALS: BP 166/81; PULSE 68; RESP 16; TEMP 36.8; O2SAT 99
--- NOTE | 2024-10-13 14:51 | P.DS_ITS ---
DS: Admitting Diagnosis Discharge Date 10/13/2024 Admitting Diagnosis Abscess of left hip, necrotizing soft tissue infection, hypertension DS: Discharge Diagnosis Discharge Diagnosis (1) Abscess of hip, left: Code(s): L02.416 - Cutaneous abscess of left lower limb Status: Acute (2) Necrotizing soft tissue infection: Code(s): M79.89 - Other specified soft tissue disorders Status: Acute (3) HTN (hypertension): Qualifiers: Hypertension type: primary hypertension Qualified Code(s): I10 - Essential (primary) hypertension Code(s): I10 - Essential (primary) hypertension Status: Acute (4) Infection of skin due to methicillin resistant Staphylococcus aureus (MRSA): Code(s): L08.9 - Local infection of the skin and subcutaneous tissue, unspecified; B95.62 - Methicillin resistant Staphylococcus aureus infection as the cause of diseases classified elsewhere Status: Acute Plan Continue local wound care with daily dressing changes. Will discharge patient with clindamycin 300 mg p.o. q.6 hours x1 week. DS: Summary Hospital Course Reason for hospitalization: Necrotizing soft tissue infection, abscess of left hip Hospital Course: This is a 59-year-old man who presented with a worsening left hip infection. He had seen Dr. Villa in the office and underwent debridement of a soft tissue necrotizing infection involving the skin on 10/03/2024. On follow-up, his infection was worsening and therefore he was taken to surgery on 10/10/2024 for more extensive debridement. He was admitted afterwards for continued IV antibiotics and wound care. Cultures were taken at the time of surgery and patient was placed on vancomycin and meropenem. He was tolerating daily dressing changes and pain was gradually improving. There were no signs of ongoing necrotic infection after debridement on 10/10. Cultures and sensitivities came back on 10/13/2024 showing evidence of MRSA. This was sensitive to clindamycin. He was tolerating dressing changes and felt comfortable with continued wound care with his at home. He was discharged on 10/13/2024. Status at Discharge Functional status at discharge: independent ambulation Overall status at discharge: patient is back to baseline Time Spent with Patient Time attestation: Total time spent providing and/or coordinating discharge services: Time spent: Less than 30 minutes Exam Const: General: comfortable and no acute distress Orientation/consciousness: patient oriented x3 Resp: Effort & Inspection: normal respiratory effort Auscultation: clear to auscultation bilaterally Cardio: Rate: regular rate Rhythm: regular rhythm Heart sounds: S1 normal heart sound present and S2 normal heart sound present GI: Inspection: non-distended GI Palp: Yes Soft to palpation and No Tenderness to palpation present (GI) Skin: Other: 3 shallow separate left hip wounds with good granulation tissue and no tunneling. No surrounding erythema. DS: Data Data Completed and Pending Labs on day of discharge: Labs from last 24 hours 10/13/24 05:00 WBC 6.8 RBC 4.01 L Hgb 11.8 L Hct 35.6 L MCV 88.8 MCH 29.4 MCHC 33.1 RDW 13.1 Plt Count 346 MPV 9.3 Immature Gran % (Auto) 0.4 Neut % (Auto) 53.0 Lymph % (Auto) 29.2 [place] % (Auto) 9.8 H Eos % (Auto) 6.6 H Baso % (Auto) 1.0 Lymph # (Auto) 1.99 [place] # (Auto) 0.7 H Eos # (Auto) 0.5 H Baso # (Auto) 0.1 Abs Immat Gran (auto) 0.03 Absolute Neuts (auto) 3.6 Absolute Nucleated RBC 0.000 Nucleated RBC % 0.0 Sodium 137 Potassium 4.1 Chloride 102 Carbon Dioxide 28 Anion Gap 7 BUN 13 Creatinine 0.77 Estim Creat Clear Calc 98 Estimated GFR > 60 Glucose 94 Calcium 9.3 C-Reactive Protein 2.6 H Preliminary micro results at discharge 10/10/24 16:10 Anaerobic Culture - Preliminary Buttock 10/10/24 16:05 Anaerobic Culture - Preliminary Thigh Left 10/10/24 18:38 Blood Culture - Preliminary Blood 10/10/24 18:38 Blood Culture - Preliminary Blood Aerobic Culture w/Gram Stain Final 10/13/24-1038 Q SOURCE: LEFT BUTTOCK STATUS: FINAL ISOLATE 1: Moderate growth of Methicillin resistant Staphylococcus aureus (MRSA) Negative for inducible clindamycin resistance. NOTE: THIS RESULT IS FLAGGED ABNORMAL Organism 1 Methicillin Resis Staph Aureus THIS TEST WAS PERFORMED AT: [address] [address] NAYE ORDAZ MD 1. Methicillin Resis Staph Aureus M.I.C. RX --------- --- Vancomycin <=0.5 S Ciprofloxacin >=8 R Clindamycin <=0.25 S Levofloxacin 4 I Erythromycin >=8 R Gentamicin <=0.5 S Oxacillin R Oxacillin-resistant staphylococci are resistant to all currently available beta-lactam antimicrobial agents with the possible exception of ceftaroline. Tetracycline <=1 S Trimethoprim/Sulfamethoxazole <=10 S Moxifloxacin 2 R Legend: S = Susceptible I = Intermediate R = Resistant NS = Not susceptible SDD = Susceptible Dose Dependent * = Not Tested NR = Not Reported NN = See Therapy Comments Discharge Plan Discharge Attending physician on discharge: Abilio Villa Discharging Clinician: Nithin Hu Patient Disposition: Home Activity: may shower and other - see discharge instructions Diet: regular Wound Care Instructions: other - see discharge instructions Discharge Instructions: * May shower as long as wound is facing away from shower head * No strenuous exercise or lifting greater than 20 lb for the next 2 weeks * Change dressing daily with silver gel, iodoform gauze, 4 x 4 gauze, ABD pad, and tape * Call office for increasing redness, pain fevers, or other concerning findings with the wounds. Patient Instructions: Antibiotic Form Patient Language: Malay Stand Alone Forms: General Discharge Information Follow-up/Referrals: Abilio Villa MD [Physician] - Keep Reg. Scheduled Appt. Discharge Medications: New oxycodone-acetaminophen [Endocet] 5-325 mg tablet 1 tablet PO Q4H PRN (Reason: pain) Qty: 10 0RF clindamycin HCl [Cleocin HCl] 300 mg capsule 300 mg PO Q6H 7 Days Qty: 28 0RF Continued amlodipine [Norvasc] 5 mg tablet 5 mg PO DAILY Qty: 90 1RF metoprolol succinate 50 mg tablet extended release 24 hr 50 mg PO DAILY irbesartan 300 mg tablet 300 mg PO DAILY Qty: 90 1RF Date of admission: 10/11/24 10:06 Primary Care Provider: Silvio Haley Admitting Provider: Abilio Villa Attending physician on admission: Abilio Villa Condition: Improved
== END 2024-10-13 16:00 | disposition home or self-care (01) | DRG 581 ==
LOC: ANH3MEDSUR 18:14
PROVIDERS: Admitting Provider Surgery; PCP Family Medicine; Visit Provider Surgery
PROC: 0KBP0ZZ Excision of Left Hip Muscle, Open Approach (ICD-10-PCS; principal; 2024-10-10 15:30)
DX: L02.416 Cutaneous abscess of left lower limb (principal); B95.62 Methicillin resistant Staphylococcus aureus infection as the cause of diseases classified elsewhere; I10 Essential (primary) hypertension; Z85.828 Personal history of other malignant neoplasm of skin; Z85.118 Personal history of other malignant neoplasm of bronchus and lung
CPT/HCPCS: 36415; 80048; 80053; 80202; 82565; 85025; 85027; 85610; 85730; 86140; 87040; 87070; 87075; 87181; 87205; 87641; 93005; 96366; 96367; 96372; A9270; G0378; J0690; J1100; J1650; J2185; J2405; J2704; J3010; J3370; J7120

== ENCOUNTER 2024-10-17 08:18 | Outpatient (CLI) | payer OTHER, SELFPAY ==
--- OUTSIDE RECORDS SUMMARY | 2024-10-17 08:26 | XMS_ITS | Clinical Summary ---
Author Organization [facility] Address [address], [facility] [address] [place] [address] Phone Care Team Providers Care Hospital Staff Pharmacist Name Role Phone Stephany Elmore Primary Care Provider [phone] Allergies Active Allergy Reactions Criticality Noted Date [...] Initial Consult [facility] [address] [address] Elissa Nuñez LCPC Need for emotional support (Primary Dx) 09/12/2024 Travel 08/15/2024 10:35 AM CDT Lab [facility] [address] [address] Lab, [facility] [place] Neuroendocrine neoplasm of lung 08/15/2024 10:15 AM CDT Office Visit [facility] [address] [address] Mariel Gilbert APRN, PAT Neuroendocrine neoplasm of lung (Primary Dx) 08/15/2024 Travel 08/05/2024 9:00 AM CDT Lab [facility] [address] [address] Lab, [facility] [place] Neuroendocrine neoplasm of lung 08/05/2024 Results Follow-Up [facility] [address] [address] Samy Vela MD CMP (COMPREHENSIVE METABOLIC PANEL) 08/05/2024 Travel 08/02/2024 Results Follow-Up [facility] [address] [address] Samy Vela MD IRON W/ IRON BINDING CAPACITY [place], CMP (COMPREHENSIVE METABOLIC PANEL), CBC WITH AUTO DIFF [place] 08/01/2024 3:15 PM CDT Lab [facility] [address] [address] Lab, [facility] [place] Neuroendocrine neoplasm of lung 08/01/2024 3:00 PM CDT Office Visit [facility] [address] [address] Samy Vela MD Neuroendocrine neoplasm of lung (Primary Dx) 08/01/2024 Travel 07/31/2024 Telephone [facility] [address] [address] Samy Vela MD Canopy Call / OV and path report from Last 3 Months Family History Medical [...] Office Visit [facility] [address] [address] Samy Vela MD [facility] [address] [place] [address] Health Maintenance Due Date Last Done [...] included. WBC 5.6 4.0 - 10.0 10*3/uL [facility] HGB 13.7 13.7 - 17.5 g/dL [facility] HCT 41.1 40.1 - 51.0 % [facility] PLT 194 163 - 369 10*3/uL [facility] MPV 9.8 9.4 - 12.4 fL [facility] RBC 4.60(L) 4.63 - 6.08 10*6/uL [facility] MCV 89 79 - 95 fL [facility] MCH 29.8 25.6 - 32.2 pg [facility] MCHC 33.3 32.2 - 36.5 g/dL [facility] RDW 13.8 11.6 - 14.4 % [facility] Neutrophils % 56.6 36.0 - 66.0 % [facility] Lymphocytes % 21.7 19.0 - 40.0 % [facility] Monocytes % 11.4 4.1 - 12.1 % [facility] Eosinophils % 9.2(H) 0.0 - 3.5 % [facility] Basophils % 0.7 0.0 - 1.0 % [facility] Absolute Neutrophils 3.2 1.4 - 6.6 10*3/uL [facility] Absolute Lymphocytes 1.2 0.8 - 4.0 10*3/uL [facility] Absolute Monocytes 0.6 0.2 - 1.2 10*3/uL [facility] Absolute Eosinophils 0.5(H) 0.0 - 0.4 10*3/uL [facility] Absolute Basophils 0.0 0.0 - 0.1 10*3/uL [facility] 08/15/2024 11:0 7 AM CDT us Mariel Gilbert FORCE VARIATION EQUIPMENT TENDER, SAMPLE DRILLER LAB SEND OUTS Fin al Result [facility] [place] [address], * CMP (COMPREHENSIVE METABOLIC PANEL) (08/15/2024 11:07 AM CDT) Only the most recent of3 resultswithin the time period is included. Glucose 99 70 - 105 mg/dL [facility] Blood Urea Nitrogen 20 7 - 25 mg/dL [facility] Creatinine 0.8 0.7 - 1.3 mg/dL [facility] Sodium 137 136 - 145 mEq/L [facility] Potassium 4.0 3.5 - 5.1 mEq/L [facility] Chloride 103 98 - 107 mEq/L [facility] Bicarbonate 28 21 - 31 mEq/L [facility] Total Bilirubin 1.0 0.3 - 1.0 mg/dL [facility] Alk. Phosphatase 67 34 - 104 U/L [facility] Aspartate Aminotransferase 14 13 - 39 U/L [facility] Alanine Aminotransferase 18 7 - 52 U/L [facility] Total Protein 6.9 6.4 - 8.9 g/dL [facility] Albumin 4.5 3.5 - 5.7 g/dL [facility] Calcium 9.8 8.6 - 10.3 mg/dL [facility] Anion Gap 10.0 7.0 - 15.0 mEq/L [facility] Globulin 2.4 2.0 - 3.5 g/dL [facility] EGFR 102 >60 ml/min/1. 73m2 [facility] Comment: This eGFR is calculated using 2020 CKD-EPI Creatinine equation without race modifier based on the NKF-ASN task force recommendations Equation: oFPL=473*min(SCr/k,1)a*max(SCr/k,1)-1.200*0.9938Age*1.012 (if female), where SCr is serum creatinine, k is 0.7 for females and 0.9 for males, and a is -0.241 for females and -0.302 for males Blood 08/15/2024 11:0 7 AM CDT Narrative [facility] - 08/15/2024 11:55 AM CDT Release to patient->Immediate IS THE PATIENT REQUIRED TO BE FASTING FOR 8 HOURS?->No Mariel Gilbert APRN, SAMPLE DRILLER CHEMISTRY ORDERABLE S Final Result [facility] [place] [address], [place] [phone] * IRON W/ IRON BINDING CAPACITY [place] (08/01/2024 3:14 PM CDT) IRON 88 50 - 212 ug/dL [facility] UIBC 234 155 - 355 ug/dL [facility] TIBC 322 261 - 478 ug/dl [facility] % Saturation 27 20 - 50 % [facility] Blood 08/01/2024 3:14 PM CDT Narrative [facility] - 08/01/2024 3:57 PM CDT Release to patient->Immediate us Samy Vela MD LAB SEND OUTS Final Result Performing Organization Address City/[facility]/ZIP Co de Phone Number [facility] [address] [address], * (ABNORMAL) FERRITIN (08/01/2024 3:14 PM CDT) Ferritin 777(H) 24 - 336 ng/mL [facility] Blood 08/01/2024 3:14 PM CDT Narrative [facility] - 08/02/2024 2:41 PM CDT Release to patient->Immediate us Samy Vela MD CHEMISTRY ORDERABLES Final R esult Performing Organization Address City/[facility]/ZIP Co de Phone Number [facility] [place] [address], [place] [phone] from Last 3 Months Insurance Matchmaker Videos [facility] OAP Care Teams Hospital Staff Pharmacist Relationship Specialty Start Date End Date Stephany Elmore PA [address] [place] [phone] PCP - General Physician Guest Service Agent 06/06/24
--- OUTSIDE RECORDS SUMMARY | 2024-10-17 08:26 | XMS_ITS | Clinical Summary ---
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
--- OUTSIDE RECORDS SUMMARY | 2024-10-17 08:26 | XMS_ITS | Encounter Summary ---
Author Organization [facility] Address [address] [place] [address] Care Team Providers Care Groover Operator Name Role Phone Florian Gregg MD Primary Care Provider [phone] Encounter Details Date Type Department Care Team (Late st Contact Info) Description 06/06/2023 Lab Requisition [facility] [address] [facility] [place] [address] Jaci Teixeira MD [address] [facility] [address] [place] [address] Social History Tobacco Use Types Packs/Day Years Used Date Smoking Tobacco: Never Assessed Sex and Gender Information Value Date Recorded Sex Assigned at Not on file Legal Sex Male 6:29 PM CREATIVE SERVICES MANAGER Gender Identity Not on file Sexual Orientation Not on file documented as of this encounter Plan of Treatment Not on file documented as of this encounter Procedures Procedure Name Priority Date/Time Associated Diagnosis Comments DERMATOPATHOLOGY Routine 06/06/2023 10:0 6 AM CREATIVE SERVICES MANAGER documented in this encounter Results * DERMATOPATHOLOGY (06/06/2023 10:06 AM CREATIVE SERVICES MANAGER) Case Report Dermatopathology Report Case: [id number] Authorizing Provider: Jaci Teixeira MD Collected: 06/06/2023 10:06 AM Ordering Location: [facility] Received: 06/07/2023 07:34 AM Pathologist: Rosa Hart MD Specimen: Skin, right forearm 11:04 AM CREATIVE SERVICES MANAGER DERMATOPATHOLOGY LABORATORY Final Diagnosis Specimen A. SKIN, right forearm: SOLAR LENTIGO (L81.4) 11:[address] [facility] DERMATOPATHOLOGY LABORATORY at [address] [facility] Clinical History R/O Melanoma Nevus Irregular Color 11:[address] [facility] DERMATOPATHOLOGY LABORATORY Gross Description Specimen A: Received is one formalin filled container labeled with the patient's name and designated right forearm. The specimen consists of a shave biopsy measuring 6x3x1 mm. Jar 0. 11:[address] [facility] DERMATOPATHOLOGY LABORATORY Microscopic Description Specimen A. SKIN, right forearm: There is orthokeratosis. There is a slight increase in epidermal thickness with lentiginous buds of hyperpigmented keratinocytes. The number of melanocytes is only mildly increased. In the dermis, there is basophilic degeneration of elastic fibers. 11:[address] [facility] DERMATOPATHOLOGY LABORATORY Disclaimer An external and internal positive and negative controls are appropriate for the histochemical, immunohistochemical and immunofluorescence stain(s) in this case (if any), except where stated explicitly. The performance characteristics of the stain(s) cited in this report were developed and its performance characteristic determined by the Dermatopathology Laboratory at [facility], directed by Dr. Chana Heard. These tests need not be, and therefore are not, approved by the [place] Food and Drug Administration. The tests are used for clinical purposes. Billing Codes Specimen Charges Stain Charges 82501 1 11:[address] [facility] DERMATOPATHOLOGY LABORATORY Embedded Images 11:[address] [facility] DERMATOPATHOLOGY LABORATORY Pathology/Cytolo gy TISSUE SPECIMEN FROM SKIN / Unknown 06/06/2023 10:06 AM CREATIVE SERVICES MANAGER 06/07/2023 7:[address] [facility] us Jaci Teixeira MD LAB - PATHOLOGY/CYTOLOGY OR DERABLES Final Result DERMATOPATHOLOGY LABORATORY [facility] - Department of Dermatology [address] [phone] documented in this encounter Visit Diagnoses Not on filedocumented in this encounter Care Teams Groover Operator Relationship Specialty Start Date End Date Florian Gregg MD [address] [place] [id number] PCP - General 09/10/09 documented as of this encounter
--- OUTSIDE RECORDS SUMMARY | 2024-10-17 08:26 | XMS_ITS | Encounter Summary ---
Author Organization [facility] Address [address] [facility] [place] [address] Care Team Providers Care Swing Tender Name Role Phone Florian Gregg MD Primary Care Provider [phone] Encounter Details Date Type Department Care Team (Late st Contact Info) Description 10/12/2022 Lab Requisition [facility] - DermPath Lab [address] 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 Gender Identity Not on file Sexual Orientation Not on file documented as of this encounter Plan of Treatment Not on file documented as of this encounter Procedures Procedure Name Priority Date/Time Associated Diagnosis Comments DERMATOPATHOLOGY Routine 10/12/2022 10:0 2 AM CDT documented in this encounter Results * DERMATOPATHOLOGY (10/12/2022 10:02 AM CDT) Case Report Dermatopathology Report Case: [id number] Authorizing Provider: Kemi Watts DO Collected: 10/12/2022 10:02 AM Ordering Location: [facility] DermPath Lab Received: 10/13/2022 09:18 AM Pathologist: [...] characteristic determined by the Dermatopathology Laboratory at [facility], directed by Dr. Chana Heard. These tests need not be, and therefore are not, approved by the [place] Food and Drug Administration. The tests are used for clinical purposes. Billing Codes Specimen Charges Stain Charges 66926 1 3 5:32 PM CDT DERMATOPATHOLOGY LABORATORY Embedded Images 3 5:32 PM CDT DERMATOPATHOLOGY LABORATORY Pathology/Cytolo gy TISSUE SPECIMEN FROM SKIN / Unknown 10/12/2022 10:02 AM CDT 10/13/2022 9:18 AM CDT Kemi Watts DO LAB - PATHOLOGY/CYTOLOGY ORDERABLES Final Result DERMATOPATHOLOGY LABORATORY [facility] - Department of Dermatology [facility] Specialized Medicine [address] [place] [address], [address]rd Floor [address] [phone] documented in this encounter Visit Diagnoses Not on filedocumented in this encounter Care Teams Swing Tender Relationship Specialty Start Date End Date Florian Gregg MD [address] [facility] [address] [facility] 20 [place] [address] PCP - General 09/10/09 documented as of this encounter
--- OUTSIDE RECORDS SUMMARY | 2024-10-17 08:26 | XMS_ITS | Referral Summary ---
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
--- OUTSIDE RECORDS SUMMARY | 2024-10-17 08:26 | XMS_ITS | Clinical Summary ---
Author Organization [facility] Address [address] [place] [address] Care Team Providers Care Washing Machine Assembler Name Role Phone Florian Gregg MD Primary Care Provider [phone] Source Comments [facility] [employer],non-owned Affiliates and Associated Physician Practices is amultiple site organization consisting of ambulatory clinics and hospital sitesin [place], [place], [place]. This disclosure is being madepursuant to the Care Everywhere program and may not contain all information available regarding this patient. 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
[2024-10-17 09:07] LABS: Basophils Absolute Auto 0.1 K/mm3 (0.0-0.1); Basophils Percent Auto 1.1 % (0.2-1.2); Eosinophils Absolute Auto 0.4 K/mm3 (0-0.3); Eosinophils Percent Auto 7.2 % (0-4.4); Hemoglobin 14.1 g/dL (14.0-18.0); Immature Granulocyte Absolute 0.02 K/mm3 (0.00-0.031); Immature Granulocyte Percent A 0.4 % (0-0.5); Lymphocytes Absolute Auto 1.85 K/mm3 (0.9-3.2); Lymphocytes Percent Auto 33.2 % (18.3-44.2); Mean Corpuscular HGB Conc 32.8 g/dl (32-36); Mean Corpuscular Hemoglobin 29.1 pg (26-34); Mean Corpuscular Volume 88.7 fl (80-100); Mean Platelet Volume 9.2 fl (7.4-10.4); Monocytes Absolute Auto 0.7 K/mm3 (0.1-0.6); Neutrophils Absolute Auto 2.6 K/mm3 (1.3-6.7); Neutrophils Percent Auto 46.1 % (45.5-73.1); Platelet Count Result 311 k/mm3 (150-375); Red Blood Count 4.85 M/mm3 (4.6-6.20); Red Cell Distribution Width 13.2 % (11.5-14.5); White Blood Count 5.6 K/mm3 (4.5-10.0)
[2024-10-17 09:30] LABS: Alanine Aminotransferase 118 U/L (6-50); Albumin Level 4.7 g/dL (3.5-5.1); Alkaline Phosphatase 92 U/L (38-126); Anion Gap 7 mmol/L (4-12); Aspartate Amino Transferase 78 U/L (17-59); Bilirubin,Total 0.4 mg/dL (0.2-1.3); Blood Urea Nitrogen 20 mg/dL (9-20); Carbon Dioxide 29 mmol/L (22-30); Chloride 102 mmol/L (98-107); Estimated Glomerular Filt Rate > 60; Glucose 100 mg/dL (65-110); Sodium 138 mmol/L (137-145)
== END 2024-10-17 08:19 | disposition home or self-care (01) ==
PROVIDERS: PCP Family Medicine; Visit Provider Surgery
DX: L08.9 Local infection of the skin and subcutaneous tissue, unspecified (principal); B95.62 Methicillin resistant Staphylococcus aureus infection as the cause of diseases classified elsewhere; L02.416 Cutaneous abscess of left lower limb
CPT/HCPCS: 36415; 80053; 85025; 87040

== ENCOUNTER 2024-10-24 07:28 | Outpatient (CLI) | payer OTHER, SELFPAY ==
[2024-10-24 07:46] LABS: Basophils Absolute Auto 0.1 K/mm3 (0.0-0.1); Eosinophils Absolute Auto 0.3 K/mm3 (0-0.3); Eosinophils Percent Auto 6.5 % (0-4.4); Hematocrit 42.1 % (42.0-52.0); Immature Granulocyte Absolute 0.01 K/mm3 (0.00-0.031); Immature Granulocyte Percent A 0.2 % (0-0.5); Lymphocytes Absolute Auto 1.99 K/mm3 (0.9-3.2); Lymphocytes Percent Auto 40.4 % (18.3-44.2); Mean Corpuscular HGB Conc 33.3 g/dl (32-36); Mean Corpuscular Hemoglobin 29.4 pg (26-34); Mean Corpuscular Volume 88.3 fl (80-100); Mean Platelet Volume 9.4 fl (7.4-10.4); Monocytes Absolute Auto 0.5 K/mm3 (0.1-0.6); Monocytes Percent Auto 10.4 % (2.6-8.5); Neutrophils Percent Auto 41.5 % (45.5-73.1); Platelet Count Result 180 k/mm3 (150-375); Red Blood Count 4.77 M/mm3 (4.6-6.20); Red Cell Distribution Width 12.9 % (11.5-14.5); White Blood Count 4.9 K/mm3 (4.5-10.0)
[2024-10-24 08:03] LABS: Alanine Aminotransferase 30 U/L (6-50); Albumin Level 4.6 g/dL (3.5-5.1); Alkaline Phosphatase 72 U/L (38-126); Aspartate Amino Transferase 28 U/L (17-59); Bilirubin,Total 0.6 mg/dL (0.2-1.3); Total Protein 7.9 g/dL (6.3-8.2)
== END 2024-10-24 07:29 | disposition home or self-care (01) ==
LOC: ANHLAB 07:29
PROVIDERS: PCP Family Medicine; Visit Provider Surgery
DX: R78.81 Bacteremia (principal); B95.62 Methicillin resistant Staphylococcus aureus infection as the cause of diseases classified elsewhere
CPT/HCPCS: 36415; 80076; 85025

== ENCOUNTER 2024-10-31 11:03 | Outpatient (CLI) | payer OTHER, SELFPAY ==
[2024-10-31 11:26] LABS: Basophils Percent Auto 0.6 % (0.2-1.2); Eosinophils Absolute Auto 0.1 K/mm3 (0-0.3); Eosinophils Percent Auto 1.7 % (0-4.4); Hematocrit 40.2 % (42.0-52.0); Hemoglobin 13.4 g/dL (14.0-18.0); Immature Granulocyte Absolute 0.01 K/mm3 (0.00-0.031); Immature Granulocyte Percent A 0.2 % (0-0.5); Immature Platelet Fraction Pct 6.6 % (0.9-11.2); Lymphocytes Absolute Auto 1.57 K/mm3 (0.9-3.2); Lymphocytes Percent Auto 29.3 % (18.3-44.2); Mean Corpuscular HGB Conc 33.3 g/dl (32-36); Mean Corpuscular Hemoglobin 28.8 pg (26-34); Mean Corpuscular Volume 86.5 fl (80-100); Mean Platelet Volume 10.8 fl (7.4-10.4); Monocytes Absolute Auto 0.5 K/mm3 (0.1-0.6); Monocytes Percent Auto 9.9 % (2.6-8.5); Neutrophils Absolute Auto 3.1 K/mm3 (1.3-6.7); Neutrophils Percent Auto 58.3 % (45.5-73.1); Platelet Count Result 93 k/mm3 (150-375); Red Blood Count 4.65 M/mm3 (4.6-6.20); Red Cell Distribution Width 13.1 % (11.5-14.5); White Blood Count 5.4 K/mm3 (4.5-10.0)
[2024-10-31 12:00] LABS: Platelet Estimate Decreased (Adequate)
[2024-10-31 12:01] LABS: Atypical Lymphocytes Present; Schistocytes None Seen
--- OUTSIDE RECORDS SUMMARY | 2024-10-31 12:04 | XMS_ITS | Encounter Summary ---
Author Organization [facility] Address [address] [facility] [place] [address] Care Team Providers Care Sporting Goods Sales Associate Name Role Phone Florian Gregg MD Primary Care Provider [phone] Encounter Details Date Type Department Care Team (Late st Contact Info) Description 06/06/2023 Lab Requisition [facility] - DermPath Lab [address] [facility], [facility] [address] Jaci Teixeira MD [address] [facility] 3 [place] [address] Social History Tobacco Use Types Packs/Day Years Used Date Smoking Tobacco: Never Assessed Sex and Gender Information Value Date Recorded Sex Assigned at Not on file Legal Sex Male 6:29 PM FARM MANAGER Gender Identity Not on file Sexual Orientation Not on file documented as of this encounter Plan of Treatment Not on file documented as of this encounter Procedures Procedure Name Priority Date/Time Associated Diagnosis Comments DERMATOPATHOLOGY Routine 06/06/2023 10:0 6 AM FARM MANAGER documented in this encounter Results * DERMATOPATHOLOGY (06/06/2023 10:06 AM FARM MANAGER) Case Report Dermatopathology Report Case: [id number] Authorizing Provider: Jaci Teixeira MD Collected: 06/06/2023 10:06 AM Ordering Location: [facility] DermPath Lab Received: 06/07/2023 07:34 AM Pathologist: Rosa Hart MD Specimen: Skin, right forearm 11:04 AM FARM MANAGER DERMATOPATHOLOGY LABORATORY Final Diagnosis Specimen A. SKIN, right forearm: SOLAR LENTIGO (L81.4) 11:04 AM [facility] DERMATOPATHOLOGY LABORATORY at [address] [facility] Clinical History R/O Melanoma Nevus Irregular Color 11:04 AM [facility] DERMATOPATHOLOGY LABORATORY Gross Description Specimen A: Received is one formalin filled container labeled with the patient's name and designated right forearm. The specimen consists of a shave biopsy measuring 6x3x1 mm. Jar 0. 11:04 AM [facility] DERMATOPATHOLOGY LABORATORY Microscopic Description Specimen A. SKIN, right forearm: There is orthokeratosis. There is a slight increase in epidermal thickness with lentiginous buds of hyperpigmented keratinocytes. The number of melanocytes is only mildly increased. In the dermis, there is basophilic degeneration of elastic fibers. 11:04 AM [facility] DERMATOPATHOLOGY LABORATORY Disclaimer An external and internal positive and negative controls are appropriate for the histochemical, immunohistochemical and immunofluorescence stain(s) in this case (if any), except where stated explicitly. The performance characteristics of the stain(s) cited in this report were developed and its performance characteristic determined by the Dermatopathology Laboratory at [facility], directed by Dr. Chana Heard. These tests need not be, and therefore are not, approved by the [place] Food and Drug Administration. The tests are used for clinical purposes. Billing Codes Specimen Charges Stain Charges 47885 1 11:04 AM [facility] DERMATOPATHOLOGY LABORATORY Embedded Images 11:04 AM [facility] DERMATOPATHOLOGY LABORATORY Pathology/Cytolo gy TISSUE SPECIMEN FROM SKIN / Unknown 06/06/2023 10:06 AM FARM MANAGER 06/07/2023 7:34 AM [facility] us Jaci Teixeira MD LAB - PATHOLOGY/CYTOLOGY OR DERABLES Final Result DERMATOPATHOLOGY LABORATORY [facility] - Department of Dermatology [address], [address] [phone] documented in this encounter Visit Diagnoses Not on filedocumented in this encounter Care Teams Sporting Goods Sales Associate Relationship Specialty Start Date End Date Florian Gregg MD [address] [place] [address] PCP - General 09/10/09 documented as of this encounter
--- OUTSIDE RECORDS SUMMARY | 2024-10-31 12:04 | XMS_ITS | Encounter Summary ---
Author Organization [facility] Address [address] [facility] [place] [address] Care Team Providers Care Costume Shop Manager Name Role Phone Florian Gregg MD Primary Care Provider [phone] Encounter Details Date Type Department Care Team (Late st Contact Info) Description 10/12/2022 Lab Requisition [facility] - DermPath Lab [address] [facility], [facility] [place] [address] Kemi Watts DO [address] [facility] 3 [place] [address] Social History Tobacco Use Types Packs/Day Years Used Date Smoking Tobacco: Never Assessed Sex and Gender Information Value Date Recorded Sex Assigned at Not on file 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] characteristic determined by the Dermatopathology Laboratory at [facility], directed by Dr. Chana Heard. These tests need not be, and therefore are not, approved by the [place] Food and Drug Administration. The tests are used for clinical purposes. Billing Codes Specimen Charges Stain Charges 66771 1 3 5:32 PM CDT DERMATOPATHOLOGY LABORATORY Embedded Images 3 5:32 PM CDT DERMATOPATHOLOGY LABORATORY Pathology/Cytolo gy TISSUE SPECIMEN FROM SKIN / Unknown 10/12/2022 10:02 AM CDT 10/13/2022 9:18 AM CDT Kemi Watts DO LAB - PATHOLOGY/CYTOLOGY ORDERABLES Final Result DERMATOPATHOLOGY LABORATORY [facility] - Department of Dermatology [facility] Specialized Medicine [address] [place] [address], [address]rd Floor [address] [phone] documented in this encounter Visit Diagnoses Not on filedocumented in this encounter Care Teams Costume Shop Manager Relationship Specialty Start Date End Date Florian Gregg MD [address] [facility] [address] [facility] 20 [place] [address] PCP - General 09/10/09 documented as of this encounter
--- OUTSIDE RECORDS SUMMARY | 2024-10-31 12:04 | XMS_ITS | Clinical Summary ---
Author Organization [facility] Address [address], [facility] [address] [place] [address] Phone Care Team Providers Care Fish Housekeeper Name Role Phone Stephany Elmore Primary Care Provider [phone] Allergies Active Allergy Reactions Criticality Noted Date [...] CDT Initial Consult [facility] [address] [address] Elissa Nuñez LCPC Need for emotional support (Primary Dx) 09/12/2024 Travel 08/15/2024 10:35 AM CDT Lab [facility] [address] [address] Lab, [facility] [place] Neuroendocrine neoplasm of lung 08/15/2024 10:15 AM CDT Office Visit [facility] [address] [address] Mariel Gilbert APRN, PAT Neuroendocrine neoplasm of lung (Primary Dx) 08/15/2024 Travel 08/05/2024 9:00 AM CDT Lab [facility] [address] [address] Lab, [facility] [place] Neuroendocrine neoplasm of lung 08/05/2024 Results Follow-Up [facility] [address] [address] Samy Vela MD CMP (COMPREHENSIVE METABOLIC PANEL) 08/05/2024 Travel 08/02/2024 Results Follow-Up [facility] [address] [address] Samy Vela MD IRON W/ IRON BINDING CAPACITY [place], CMP (COMPREHENSIVE METABOLIC PANEL), CBC WITH AUTO DIFF [place] 08/01/2024 3:15 PM CDT Lab [facility] [address] [address] Lab, [facility] [place] Neuroendocrine neoplasm of lung 08/01/2024 3:00 PM CDT Office Visit [facility] [address] [address] Samy Vela MD Neuroendocrine neoplasm of lung (Primary Dx) 08/01/2024 Travel 07/31/2024 Telephone [facility] [address] [address] Samy Vela MD Canopy Call / OV [...] CDT Office Visit [facility] [address] [address] Samy Vela MD [facility] [address] [place] [address] Health Maintenance Due Date Last Done Comments Hepatitis C Virus (HCV) Screening 1965 Hepatitis B Immunization (1 of 3 - 19+ 3-dose series) 1984 Pneumococcal Immunization (50+ years) (1 of 2 - PCV) 1984 Zoster Immunization (1 of 2) 1984 Cologuard 2010 Colonoscopy 2010 Colorectal Cancer Screening 2010 Immunochemical Fecal Occult Blood 2010 PSA Discussion 2020 SARS-COV-2 Immunization ( season) [...] included. WBC 5.6 4.0 - 10.0 10*3/uL [facility] HGB 13.7 13.7 - 17.5 g/dL [facility] HCT 41.1 40.1 - 51.0 % [facility] PLT 194 163 - 369 10*3/uL [facility] MPV 9.8 9.4 - 12.[address] [facility] RBC 4.60(L) 4.63 - 6.08 10*6/uL [facility] MCV 89 79 - 95 fL [facility] MCH 29.8 25.6 - 32.2 pg [facility] MCHC 33.3 32.2 - 36.5 g/dL [facility] RDW 13.8 11.6 - 14.4 % [facility] Neutrophils % 56.6 36.0 - 66.0 % [facility] Lymphocytes % 21.7 19.0 - 40.0 % [facility] Monocytes % 11.4 4.1 - 12.1 % [facility] Eosinophils % 9.2(H) 0.0 - 3.5 % [facility] Basophils % 0.7 0.0 - 1.0 % [facility] Absolute Neutrophils 3.2 1.4 - 6.6 10*3/uL [facility] Absolute Lymphocytes 1.2 0.8 - 4.0 10*3/uL [facility] Absolute Monocytes 0.6 0.2 - 1.2 10*3/uL [facility] Absolute Eosinophils 0.5(H) 0.0 - 0.4 10*3/uL [facility] Absolute Basophils 0.0 0.0 - 0.1 10*3/uL [facility] 08/15/2024 11:0 7 AM CDT us Mariel Gilbert DRYWALL STRIPPER HELPER, AUTO APPRENTICE MECHANIC LAB SEND OUTS Fin al Result [facility] [place] [address], * CMP (COMPREHENSIVE METABOLIC PANEL) (08/15/2024 11:07 AM CDT) Only the most recent of3 resultswithin the time period is included. Glucose 99 70 - 105 mg/dL [facility] Blood Urea Nitrogen 20 7 - 25 mg/dL [facility] Creatinine 0.8 0.7 - 1.3 mg/dL [facility] Sodium 137 136 - 145 mEq/L [facility] Potassium 4.0 3.5 - 5.1 mEq/L [facility] Chloride 103 98 - 107 mEq/L [facility] Bicarbonate 28 21 - 31 mEq/L [facility] Total Bilirubin 1.0 0.3 - 1.0 mg/dL [facility] ACID REGENERATOR [facility] Alk. Phosphatase 67 34 - 104 U/L [facility] Aspartate Aminotransferase 14 13 - 39 U/L [facility] Alanine Aminotransferase 18 7 - 52 U/L [facility] Total Protein 6.9 6.4 - 8.9 g/dL [facility] Albumin 4.5 3.5 - 5.7 g/dL [facility] Calcium 9.8 8.6 - 10.3 mg/dL [facility] Anion Gap 10.0 7.0 - 15.0 mEq/L [facility] Globulin 2.4 2.0 - 3.5 g/dL [facility] EGFR 102 >60 ml/min/1. 73m2 [facility] ACID REGENERATOR [facility] Comment: This eGFR is calculated using 2020 CKD-EPI Creatinine equation without race modifier based on the NKF-ASN task force recommendations Equation: cKZF=786*min(SCr/k,1)a*max(SCr/k,1)-1.200*0.9938Age*1.012 (if female), where SCr is serum creatinine, k is 0.7 for females and 0.9 for males, and a is -0.241 for females and -0.302 for males Blood 08/15/2024 11:0 7 AM CDT Narrative [facility] - 08/15/2024 11:55 AM CDT Release to patient->Immediate IS THE PATIENT REQUIRED TO BE FASTING FOR 8 HOURS?->No Mariel Gilbert APRN, AUTO APPRENTICE MECHANIC CHEMISTRY ORDERABLE S Final Result [facility] [place] [address], [place] [phone] * IRON W/ IRON BINDING CAPACITY [place] (08/01/2024 3:14 PM CDT) IRON 88 50 - 212 ug/dL [facility] UIBC 234 155 - 355 ug/dL [facility] TIBC 322 261 - 478 ug/dl [facility] % Saturation 27 20 - 50 % [facility] Blood 08/01/2024 3:14 PM CDT Narrative [facility] - 08/01/2024 3:57 PM CDT Release to patient->Immediate us Samy Vela MD LAB SEND OUTS Final Result Performing Organization Address City/[facility]/ZIP Co de Phone Number [facility] [address] [address], * (ABNORMAL) FERRITIN (08/01/2024 3:14 PM CDT) Ferritin 777(H) 24 - 336 ng/mL [facility] Blood 08/01/2024 3:14 PM CDT Narrative [facility] - 08/02/2024 2:41 PM CDT Release to patient->Immediate us Samy Vela MD CHEMISTRY ORDERABLES Final R esult Performing Organization Address City/[facility]/ZIP Co de Phone Number [facility] [place] [address], [place] [phone] from Last 3 Months Insurance [employer] [facility] OAP Care Teams Fish Housekeeper Relationship Specialty Start Date End Date Stephany Elmore PA [address] [place] [address] PCP - General Physician Law Firm Receptionist 06/06/24
--- OUTSIDE RECORDS SUMMARY | 2024-10-31 12:04 | XMS_ITS | Clinical Summary ---
Author Organization [facility] Address [address] [facility] [place] [address] Care Team Providers Care Assistant Manager Trainee Name Role Phone Florian Gregg MD Primary Care Provider [phone] Source Comments [facility] [employer],non-owned Affiliates and Associated Physician Practices is amultiple site organization consisting of ambulatory clinics and hospital sitesin [place], [place], [place] and [place]. This disclosure is being madepursuant to the Care Everywhere program and may not contain all information available regarding this patient. Last updated 18.[facility] [employer] Social History Tobacco Use Types Packs/Day Years Used Date Smoking Tobacco: Never Assessed Sex and Gender Information Value Date Recorded Sex Assigned at Not on file Legal Sex Male 6:[address] JUDGE Gender Identity Not on file Sexual Orientation [...] age to complete this topic [place] [address] [place] [address] Care Teams Assistant Manager Trainee Relationship Specialty Start Date End Date Florian Gregg MD [address] [place] [address] PCP - General 09/10/09
--- OUTSIDE RECORDS SUMMARY | 2024-10-31 12:04 | XMS_ITS | Clinical Summary ---
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
--- OUTSIDE RECORDS SUMMARY | 2024-10-31 12:04 | XMS_ITS | Referral Summary ---
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
== END 2024-10-31 11:04 | disposition home or self-care (01) ==
LOC: ANHLAB 11:04
PROVIDERS: PCP Family Medicine; Visit Provider Surgery
DX: M79.89 Other specified soft tissue disorders (principal); L08.9 Local infection of the skin and subcutaneous tissue, unspecified; B95.62 Methicillin resistant Staphylococcus aureus infection as the cause of diseases classified elsewhere; R78.81 Bacteremia
CPT/HCPCS: 36415; 85025; 85055

== ENCOUNTER 2024-11-06 11:41 | Outpatient (CLI) | payer OTHER, SELFPAY ==
[2024-11-06 12:38] LABS: Basophils Percent Auto 0.6 % (0.2-1.2); Eosinophils Absolute Auto 0.2 K/mm3 (0-0.3); Eosinophils Percent Auto 3.3 % (0-4.4); Hematocrit 35.1 % (42.0-52.0); Hemoglobin 11.8 g/dL (14.0-18.0); Immature Granulocyte Absolute 0.09 K/mm3 (0.00-0.031); Immature Granulocyte Percent A 1.4 % (0-0.5); Lymphocytes Percent Auto 26.8 % (18.3-44.2); Mean Corpuscular HGB Conc 33.6 g/dl (32-36); Mean Corpuscular Hemoglobin 28.8 pg (26-34); Mean Corpuscular Volume 85.6 fl (80-100); Monocytes Absolute Auto 0.7 K/mm3 (0.1-0.6); Neutrophils Absolute Auto 3.6 K/mm3 (1.3-6.7); Neutrophils Percent Auto 56.9 % (45.5-73.1); Platelet Count Result 160 k/mm3 (150-375); Red Cell Distribution Width 13.5 % (11.5-14.5); White Blood Count 6.4 K/mm3 (4.5-10.0)
--- OUTSIDE RECORDS SUMMARY | 2024-11-06 13:31 | XMS_ITS | Referral Summary ---
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
--- OUTSIDE RECORDS SUMMARY | 2024-11-06 13:31 | XMS_ITS | Clinical Summary ---
Author Organization [facility] Address [address], [facility] [address] [place] [address] Phone Care Team Providers Care Calender Wind Up Tender Name Role Phone Stephany Elmore Primary Care Provider [phone] Allergies Active Allergy Reactions Criticality Noted Date [...] CDT Initial Consult [facility] [address] [address] Elissa Nuñez LCPC Need for emotional support (Primary Dx) 09/12/2024 Travel 08/15/2024 10:35 AM CDT Lab [facility] [address] [address] Lab[facility]ocrine ne[facility] of lung 08/15/2024 10:15 AM CDT Office Visit [facility] [address] [phone] Mariel Gilbert APRN, FEED MILL LAB TECHNICIAN Neuroendocrine neoplasm of lung (Primary Dx) 08/15/2024 Travel from Last 3 Months Family History Medical [...] CDT Office Visit [facility] [address] [phone] Samy Vela MD [address] [place], [place] [address] Health Maintenance Due Date Last Done Comments [...] 11:07 AM CDT Neuroendocrine neoplasm of lung from Last 3 Months Results * (ABNORMAL) CBC WITH AUTO DIFF [place] (08/15/2024 11:07 AM CDT) WBC 5.6 4.0 - 10.0 10*3/uL [facility] HGB 13.7 13.7 - 17.5 g/dL [facility] HCT 41.1 40.1 - 51.0 % [facility]PER[facility] PLT 194 163 - 369 10*3/uL [facility]PER[facility] MPV 9.8 9.4 - 12.4 fL [facility] PRESS [facility]PER[facility] RBC 4.60(L) 4.63 - 6.08 10*6/uL CANCER MEAT PRESS OPERATOR [facility] MCV 89 79 - 95 fL CAN[facility] MEAT PRESS OPERATOR [facility] MCH 29.8 25.6 - 32.2 pg CAN[facility]ER MEAT PRESS OPERATOR [facility] MCHC 33.3 32.2 - 36.5 g/dL [facility]AT PRESS [facility]PER[facility] RDW 13.8 11.6 - 14.4 % [facility]AT PR[facility]PER[facility] Neutrophils % 56.6 36.0 - 66.0 % [facility]PER[facility] Lymphocytes % 21.7 19.0 - 40.0 % [facility] MEAT PRESS [facility]PER[facility] Monocytes % 11.4 4.1 - 12.1 % [facility]AT PRESS [facility]PER[facility] Eosinophils % 9.2(H) 0.0 - 3.5 % [facility] MEAT PRESS [facility]PER[facility] Basophils % 0.7 0.0 - 1.0 % [facility] Absolute Neutrophils 3.2 1.4 - 6.6 10*3/uL [facility] Absolute Lymphocytes 1.2 0.8 - 4.0 10*3/uL [facility] Absolute Monocytes 0.6 0.2 - 1.2 10*3/uL [facility] MEAT [facility] Absolute Eosinophils 0.5(H) 0.0 - 0.4 10*3/uL [facility] Absolute Basophils 0.0 0.0 - 0.1 10*3/uL [facility] 08/15/2024 11:0 7 AM CDT us Mariel Gilbert EMBEDDED SOFTWARE MANAGER, FEED MILL LAB TECHNICIAN LAB SEND OUTS Fin al Result [facility] [place] [address], * CMP (COMPREHENSIVE METABOLIC PANEL) (08/15/2024 11:07 AM CDT) Glucose 99 70 - 105 mg/dL [facility] Blood Urea Nitrogen 20 7 - 25 mg/dL [facility] Creatinine 0.8 0.7 - 1.3 mg/dL [facility] Sodium 137 136 - 145 mEq/L [facility] Potassium 4.0 3.5 - 5.1 mEq/L [facility] Chloride 103 98 - 107 mEq/L [facility] Bicarbonate 28 21 - 31 mEq/L [facility] Total Bilirubin 1.0 0.3 - 1.0 mg/dL [facility] Alk. Phosphatase 67 34 - 104 U/L [facility] Aspartate Aminotransferase 14 13 - 39 U/L [facility] Alanine Aminotransferase 18 7 - 52 U/L [facility] Total Protein 6.9 6.4 - 8.9 g/dL [facility] Albumin 4.5 3.5 - 5.7 g/dL [facility] Calcium 9.8 8.6 - 10.3 mg/dL [facility] Anion Gap 10.0 7.0 - 15.0 mEq/L [facility] Globulin 2.4 2.0 - 3.5 g/dL [facility] EGFR 102 >60 ml/min/1. 73m2 [facility] MEAT PRESS OPERATOR [facility] Comment: This eGFR is calculated using 2020 CKD-EPI Creatinine equation without race modifier based on the NKF-ASN task force recommendations Equation: kZMT=178*min(SCr/k,1)a*max(SCr/k,1)-1.200*0.9938Age*1.012 (if female), where SCr is serum creatinine, k is 0.7 for females and 0.9 for males, and a is -0.241 for females and -0.302 for males Blood 08/15/2024 11:0 7 AM CDT Narrative [facility] - 08/15/2024 11:55 AM CDT Release to patient->Immediate IS THE PATIENT REQUIRED TO BE FASTING FOR 8 HOURS?->No us Mariel Gilbert APRN, FEED MILL LAB TECHNICIAN CHEMISTRY ORDERABLE S Final Result [facility] PRESS [facility]PER[facility] [place] [address], from Last 3 Months Insurance [employer] [facility] OAP Care Teams Calender Wind Up Tender Relationship Specialty Start Date End Date Stephany Elmore PA [address] [place] [phone] PCP - General Physician Spray Operator 06/06/24
--- OUTSIDE RECORDS SUMMARY | 2024-11-06 13:31 | XMS_ITS | Encounter Summary ---
Author Organization [facility] Address [address] [place] [address] Care Team Providers Care Vegetable Trimmer Name Role Phone Florian Gregg MD Primary Care Provider [phone] Encounter Details Date Type Department Care Team (Late st Contact Info) Description 10/12/2022 Lab Requisition [facility] Derm[facility] Lab [address] [facility], [facility] [place] [phone] Kemi Watts DO [address] [facility] [address] [place] [address] Social History Tobacco Use Types Packs/Day Years Used Date Smoking Tobacco: Never Assessed Sex and Gender Information Value Date Recorded Sex Assigned at Not on file 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 Gender Identity Not on file Sexual Orientation Not on file documented as of this encounter Plan of Treatment Not on file documented as of this encounter Procedures Procedure Name Priority Date/Time Associated Diagnosis Comments DERMATOPATHOLOGY Routine 10/12/2022 10:0 2 AM CDT documented in this encounter Results * DERMATOPATHOLOGY (10/12/2022 10:02 AM CDT) Case Report Dermatopathology Report Case: [id number] Authorizing Provider: Kemi Watts DO Collected: 10/12/2022 10:02 AM Ordering Location: [facility] DermPath Lab Received: 10/13/2022 09:18 AM Pathologist: [...] characteristic determined by the Dermatopathology Laboratory at [facility], directed by Dr. Chana Heard. These tests need not be, and therefore are not, approved by the [place] Food and Drug Administration. The tests are used for clinical purposes. Billing Codes Specimen Charges Stain Charges 22898 1 3 5:32 PM CDT DERMATOPATHOLOGY LABORATORY Embedded Images 3 5:32 PM CDT DERMATOPATHOLOGY LABORATORY Pathology/Cytolo gy TISSUE SPECIMEN FROM SKIN / Unknown 10/12/2022 10:02 AM CDT 10/13/2022 9:18 AM CDT Kemi Watts DO LAB - PATHOLOGY/CYTOLOGY ORDERABLES Final Result DERMATOPATHOLOGY LABORATORY [facility] - Department of Dermatology [facility] [address] [place] [address], [address] [phone] documented in this encounter Visit Diagnoses Not on filedocumented in this encounter Care Teams Vegetable Trimmer Relationship Specialty Start Date End Date Florian Gregg MD [address] [facility] [address] [facility] [address] [place] [address] PCP - General 09/10/09 documented as of this encounter
--- OUTSIDE RECORDS SUMMARY | 2024-11-06 13:31 | XMS_ITS | Encounter Summary ---
Author Organization [facility] Address [address] [facility] [place] [address] Care Team Providers Care Director Process Name Role Phone Florian Gregg MD Primary Care Provider [phone] Encounter Details Date Type Department Care Team (Late st Contact Info) Description 06/06/2023 Lab Requisition [facility] - Derm[facility] Lab [address] [facility], [facility] [place] [address] Jaci Teixeira MD [address] [facility] 3 [place] [address] Social History Tobacco Use Types Packs/Day Years Used Date Smoking Tobacco: Never Assessed Sex and Gender Information Value Date Recorded Sex Assigned at Not on file Legal Sex Male 6:29 PM KNOT BORER Gender Identity Not on file Sexual Orientation Not on file documented as of this encounter Plan of Treatment Not on file documented as of this encounter Procedures Procedure Name Priority Date/Time Associated Diagnosis Comments DERMATOPATHOLOGY Routine 06/06/2023 10:0 6 AM KNOT BORER documented in this encounter Results * DERMATOPATHOLOGY (06/06/2023 10:06 AM KNOT BORER) Case Report Dermatopathology Report Case: [id number] Authorizing Provider: Jaci Teixeira MD Collected: 06/06/2023 10:06 AM Ordering Location: [facility] DermPath Lab Received: 06/07/2023 07:34 AM Pathologist: Rosa Hart MD Specimen: Skin, right forearm 11:04 AM KNOT BORER DERMATOPATHOLOGY LABORATORY Final Diagnosis Specimen A. SKIN, right forearm: SOLAR LENTIGO (L81.4) 11:04 AM [facility] DERMATOPATHOLOGY LABORATORY at [address] [facility] Clinical History R/O Melanoma Nevus Irregular Color 11:04 AM [facility] DERMATOPATHOLOGY LABORATORY Gross Description Specimen A: Received is one formalin filled container labeled with the patient's name and designated right forearm. The specimen consists of a shave biopsy measuring 6x3x1 mm. Jar 0. 11:04 AM [facility] DERMATOPATHOLOGY LABORATORY Microscopic Description Specimen A. SKIN, right forearm: There is orthokeratosis. There is a slight increase in epidermal thickness with lentiginous buds of hyperpigmented keratinocytes. The number of melanocytes is only mildly increased. In the dermis, there is basophilic degeneration of elastic fibers. 11:04 AM [facility] DERMATOPATHOLOGY LABORATORY Disclaimer An external and internal positive and negative controls are appropriate for the histochemical, immunohistochemical and immunofluorescence stain(s) in this case (if any), except where stated explicitly. The performance characteristics of the stain(s) cited in this report were developed and its performance characteristic determined by the Dermatopathology Laboratory at [facility], directed by Dr. Chana Heard. These tests need not be, and therefore are not, approved by the [place] Food and Drug Administration. The tests are used for clinical purposes. Billing Codes Specimen Charges Stain Charges 16323 1 11:04 AM [facility] DERMATOPATHOLOGY LABORATORY Embedded Images 11:04 AM [facility] DERMATOPATHOLOGY LABORATORY Pathology/Cytolo gy TISSUE SPECIMEN FROM SKIN / Unknown 06/06/2023 10:06 AM KNOT BORER 06/07/2023 7:34 AM [facility] us Jaci Teixeira MD LAB - PATHOLOGY/CYTOLOGY OR DERABLES Final Result DERMATOPATHOLOGY LABORATORY [facility] - Department of Dermatology [address], [address] [phone] documented in this encounter Visit Diagnoses Not on filedocumented in this encounter Care Teams Director Process Relationship Specialty Start Date End Date Florian Gregg MD [address] [place] [phone] PCP - General 09/10/09 documented as of this encounter
--- OUTSIDE RECORDS SUMMARY | 2024-11-06 13:31 | XMS_ITS | Clinical Summary ---
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
--- OUTSIDE RECORDS SUMMARY | 2024-11-06 13:31 | XMS_ITS | Clinical Summary ---
Author Organization [facility] Address [address] [place] [address] Care Team Providers Care Master Automotive Technician Name Role Phone Florian Gregg MD Primary Care Provider [phone] Source Comments [facility] [employer],non-owned Affiliates and Associated Physician Practices is amultiple site organization consisting of ambulatory clinics and hospital sitesin [place], [place], [place] and [place]. This disclosure is being madepursuant to the Care Everywhere program and may not contain all information available regarding this patient. Last updated 18.[facility] Social History Tobacco Use Types Packs/Day Years Used Date Smoking Tobacco: Never Assessed Sex and Gender Information Value Date Recorded Sex Assigned at Not on file Legal Sex Male 6:29 PM CARDIAC NURSE Gender Identity Not on file Sexual Orientation [...] age to complete this topic [place] [address] [place] [address] Care Teams Master Automotive Technician Relationship Specialty Start Date End Date Florian Gregg MD [address] [place] [address] PCP - General 09/10/09
== END 2024-11-06 11:42 | disposition home or self-care (01) ==
LOC: ANHLAB 11:42
PROVIDERS: PCP Family Medicine; Visit Provider Surgery
DX: L08.9 Local infection of the skin and subcutaneous tissue, unspecified (principal); B95.62 Methicillin resistant Staphylococcus aureus infection as the cause of diseases classified elsewhere; S71.002A Unspecified open wound, left hip, initial encounter; X58.XXXA Exposure to other specified factors, initial encounter
CPT/HCPCS: 36415; 85025

== ENCOUNTER 2024-11-13 09:31 | Outpatient (CLI) | payer OTHER, SELFPAY ==
[2024-11-13 10:01] LABS: Basophils Percent Auto 0.7 % (0.2-1.2); Eosinophils Absolute Auto 0.3 K/mm3 (0-0.3); Eosinophils Percent Auto 4.5 % (0-4.4); Hematocrit 39.3 % (42.0-52.0); Hemoglobin 12.9 g/dL (14.0-18.0); Immature Granulocyte Absolute 0.03 K/mm3 (0.00-0.031); Immature Granulocyte Percent A 0.5 % (0-0.5); Lymphocytes Absolute Auto 1.74 K/mm3 (0.9-3.2); Lymphocytes Percent Auto 31.4 % (18.3-44.2); Mean Corpuscular HGB Conc 32.8 g/dl (32-36); Mean Corpuscular Hemoglobin 28.8 pg (26-34); Mean Corpuscular Volume 87.7 fl (80-100); Mean Platelet Volume 9.7 fl (7.4-10.4); Monocytes Absolute Auto 0.6 K/mm3 (0.1-0.6); Monocytes Percent Auto 11.4 % (2.6-8.5); Neutrophils Absolute Auto 2.9 K/mm3 (1.3-6.7); Neutrophils Percent Auto 51.5 % (45.5-73.1); Platelet Count Result 235 k/mm3 (150-375); Red Blood Count 4.48 M/mm3 (4.6-6.20); Red Cell Distribution Width 15.2 % (11.5-14.5); White Blood Count 5.5 K/mm3 (4.5-10.0)
== END 2024-11-13 09:32 | disposition home or self-care (01) ==
PROVIDERS: PCP Family Medicine; Visit Provider Surgery
DX: L08.9 Local infection of the skin and subcutaneous tissue, unspecified (principal); B95.62 Methicillin resistant Staphylococcus aureus infection as the cause of diseases classified elsewhere; S71.002A Unspecified open wound, left hip, initial encounter; X58.XXXA Exposure to other specified factors, initial encounter
CPT/HCPCS: 36415; 85025

== ENCOUNTER 2024-11-20 09:48 | Outpatient (CLI) | payer OTHER, SELFPAY ==
[2024-11-20 10:37] LABS: Hematocrit 42.9 % (42.0-52.0); Hemoglobin 14.1 g/dL (14.0-18.0); Immature Granulocyte Percent A 0.3 % (0-0.5); Lymphocytes Absolute Auto 1.49 K/mm3 (0.9-3.2); Mean Corpuscular HGB Conc 32.9 g/dl (32-36); Mean Corpuscular Hemoglobin 29.1 pg (26-34); Mean Corpuscular Volume 88.5 fl (80-100); Nucleated Red Blood Cells Absolute Auto 0.000 K/mm3 (0.0-0.012); Nucleated Red Blood Cells Perc 0.0 % (0.0-0.2); Platelet Count Result 196 k/mm3 (150-375); Red Blood Count 4.85 M/mm3 (4.6-6.20); White Blood Count 3.6 K/mm3 (4.5-10.0)
[2024-11-20 11:04] LABS: Schistocytes None Seen
[2024-11-20 11:20] LABS: Alanine Aminotransferase 30 U/L (6-50); Albumin Level 4.8 g/dL (3.5-5.1); Alkaline Phosphatase 81 U/L (38-126); Anion Gap 12 mmol/L (4-12); Aspartate Amino Transferase 36 U/L (17-59); Bilirubin,Total 0.6 mg/dL (0.2-1.3); Blood Urea Nitrogen 21 mg/dL (9-20); Calcium 9.6 mg/dL (8.4-10.2); Carbon Dioxide 24 mmol/L (22-30); Chloride 104 mmol/L (98-107); Estimated Glomerular Filt Rate > 60; Glucose 96 mg/dL (65-110); Potassium 4.2 mmol/L (3.4-5.0); Sodium 140 mmol/L (137-145); Total Protein 8.4 g/dL (6.3-8.2)
[2024-11-20 11:24] LABS: Iron 112 ug/dL (49-181)
[2024-11-20 11:41] LABS: Percent Iron Saturation 32 % (20-50)
[2024-11-20 12:03] LABS: Ferritin 145.00 ng/mL (11.1-264)
== END 2024-11-20 09:49 | disposition home or self-care (01) ==
PROVIDERS: PCP Family Medicine; Referring Provider Surgery
DX: L02.31 Cutaneous abscess of buttock (principal); D3A.8 Other benign neuroendocrine tumors
CPT/HCPCS: 36415; 80053; 82728; 83540; 83550; 85025

== ENCOUNTER 2024-11-27 11:25 | Outpatient (CLI) | payer OTHER, SELFPAY ==
--- OUTSIDE RECORDS SUMMARY | 2024-11-27 11:27 | XMS_ITS | Encounter Summary ---
Author Organization [facility] Address [facility] [place] [address] Care Team Providers Care Extension Division Director Name Role Phone Samy Vela MD Unavailable [phone] Tai Pugh MD Unavailable [phone] Silvio Haley MD Primary Care Provider [phone] Encounter Details Date Type Department Care Team (Latest Contact Info) Description 11/26/2024 Travel Social History Tobacco Use Types Packs/Day Years Used Date Smoking Tobacco: Never Passive Smoke Exposure: Yes Smokeless Tobacco: Never Alcohol Use Standard Drinks/Week Comments Yes 10 (1 standard drink = 0.6 oz pu re alcohol) [facility] Utilities Answer Date Recorded In the past 12 months has e [employer], gas, oil, or water [employer] threatened to shut off services in your home? No 07/20/2024 Humiliation, Afraid, Rape, and Kick questionnair e Answer Date Recorded Within the last year, have y ou been afraid of your partner or ex-partner? No 07/20/2024 Within the last year, have y ou been humiliated or emotionally abused in other ways by your partner or ex-partner? No Within the last year, have y ou been kicked, hit, slapped, or otherwise physically hurt by your partner or ex-partner? No 07/20/2024 Within the last year, have y ou been raped or forced to have any kind of sexual activity by your partner or ex-partner? No 07/20/2024 Overall Financial Resource Strain (CARDIA) Answe r Date Recorded How hard is it for you to pa y for the very basics like food, housing, medical care, and heating? Not hard at all 07/20/2024 Hunger Vital Sign Answer Date Recorded Within the past 12 months, y ou worried that your food would run out before you got the money to buy more. Never true 07/21/19 25 Within the past 12 months, t he food you bought just didn't last and you didn't have money to get more. Never true 07/20/2024 PRAPARE - Transportation Answer Date Re corded In the past 12 months, has l ack of transportation kept you from medical appointments or from getting medications? No 05/2024 In the past 12 months, has l ack of transportation kept you from meetings, work, or from getting things needed for daily living? No 07/20/2024 Housing Stability Vital Sign Answer Gianfranco e Recorded In the last 12 months, was t here a time when you were not able to pay the mortgage or rent on time? No 07/20/2024 In the past 12 months, how m any times have you moved where you were living? 0 07/20/2024 At any time in the past 12 m [facility], were you homeless or living in a correction (including now)? No 07/20/2024 Sex and Gender Information Value Date Recorded Sex Assigned at Male 10/03/2023 7:55 AM CDT Legal Sex Male 7:30 PM CDT Gender Identity Male 10/03/2023 7:55 AM CDT Sexual Orientation Not on file documented as of this encounter Functional Status * Are you deaf or do you have serious difficulty hearing Answer Date of Assessment Author Status No 07/20/2024 12:00 AM Carlyn Reese, RN Active * Are you blind or do you have serious difficulty seeing, even when wearing glasses? Answer Date of Assessment Author Status No 07/20/2024 12:00 AM Carlyn Reese, RN Active * Do you have serious difficulty walking or climbing stairs? Answer Date of Assessment Author Status No 07/20/2024 12:00 AM Carlyn Reese, RN Active * Do you have difficulty dressing or bathing? Answer Date of Assessment Author Status No 07/20/2024 12:00 AM Carlyn Reese RN Active * Because of a physical, mental, or emotional condition, do you have difficulty doing errands alone such as visiting a doctor's office or shopping? Answer Date of Assessment Author Status No 07/20/2024 12:00 AM Carlyn Reese RN Active documented as of this encounter Mental Status * Because of a physical, mental, or emotional condition, do you have serious difficulty concentrating, remembering, or making decisions? Answer Entry Date Author Status No 07/20/2024 12:00 AM Carlyn Reese RN Active documented in this encounter Plan of Treatment Upcoming Encounters Date Type Department Care Team (Late st Contact Info) Description 02/06/2025 9:40 AM CDT Office Visit [facility] Multispecialty Care - [facility] [address] [facility] [place] [address] Tai Pugh MD [address] [facility] [address] [place] [address] 05/08/2025 8:00 AM ACCOUNTS ADJUSTABLE CLERK Appointment [facility] [address] [facility] [place] [address] Phuc Evans MD [address] [facility]. [address] [place] [address] 05/20/2025 8:45 AM ACCOUNTS ADJUSTABLE CLERK Office Visit [facility] [address] [facility], [address] [place] [address] Phuc Evans MD Three [facility]. [address] [place] [address] documented as of this encounter Goals Goal Patient Goal Type Associated Problems Recent Progress Patient-Stated? Author Health - patient able to perform ADLs independently Lifestyle No [place], Isi M, RN documented as of this encounter Visit Diagnoses Not on filedocumented in this encounter Care Teams Extension Division Director Relationship Specialty Start Date End Date Silvio Haley MD [address] [place] [address] PCP - General FAMILY PRACTICE 08/05/24 Samy Vela MD [address] [place] [phone] Consulting Physician HEMATOLOGY/ONCOLOGY 07/15/24 Tai Pugh MD [address] [place] [phone] Consulting Physician PULMONARY DISEASE 07/15/24 documented as of this encounter
--- OUTSIDE RECORDS SUMMARY | 2024-11-27 11:27 | XMS_ITS | Clinical Summary ---
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
--- OUTSIDE RECORDS SUMMARY | 2024-11-27 11:27 | XMS_ITS | Referral Summary ---
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
--- OUTSIDE RECORDS SUMMARY | 2024-11-27 11:27 | XMS_ITS | Clinical Summary ---
Author Organization [facility] Address [address] [place] [address] Care Team Providers Care College Athlete Name Role Phone Florian Gregg MD Primary Care Provider [phone] Source Comments [facility] [employer],non-owned Affiliates and Associated Physician Practices is amultiple site organization consisting of ambulatory clinics and hospital sitesin [place], [place], [place] and [place]. This disclosure is being madepursuant to the Care Everywhere program and may not contain all information available regarding this patient. 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 11/20/2024 Narrative 11/20/2024 Ordered by an unspecified provider. us Scanned Document LAB - THERAPEUTIC DRUG MONITORI NG ORDERABLES Final Result from Last 3 Months Insurance MARISELA Care Teams College Athlete Relationship Specialty Start Date End Date Florian Gregg MD [address] [facility] [address] [place] [address] PCP - General 09/10/09
--- OUTSIDE RECORDS SUMMARY | 2024-11-27 11:28 | XMS_ITS | Encounter Summary ---
Author Organization [facility] Address [address] [facility] [place] [address] Care Team Providers Care Box Toe Stitcher Name Role Phone Florian Gregg MD Primary Care Provider [phone] Encounter Details Date Type Department Care Team (Late st Contact Info) Description 10/12/2022 Lab Requisition [facility] - DermPath Lab [address] [facility], [facility] [place] [phone] Kemi Watts DO [address] [facility] 3 [place] [address] Social History Tobacco Use Types Packs/Day Years Used Date Smoking Tobacco: Never Assessed Sex and Gender Information Value Date Recorded Sex Assigned at Not on file Legal 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 Male 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 Gender Identity Not on file Sexual Orientation Not on file documented as of this encounter Plan of Treatment Not on file documented as of this encounter Procedures Procedure Name Priority Date/Time Associated Diagnosis Comments DERMATOPATHOLOGY Routine 10/12/2022 10:0 2 AM CDT documented in this encounter Results * DERMATOPATHOLOGY (10/12/2022 10:02 AM CDT) Case Report Dermatopathology Report Case: [id number] Authorizing Provider: Kemi Watts DO Collected: 10/12/2022 10:02 AM Ordering Location: [facility] DermPath Lab Received: 10/13/2022 09:18 AM [...] characteristic determined by the Dermatopathology Laboratory at [facility], directed by Dr. Chana Heard. These tests need not be, and therefore are not, approved by the [place] Food and Drug Administration. The tests are used for clinical purposes. Billing Codes Specimen Charges Stain Charges 71557 1 3 5:32 PM CDT DERMATOPATHOLOGY LABORATORY Embedded Images 3 5:32 PM CDT DERMATOPATHOLOGY LABORATORY Pathology/Cytolo gy TISSUE SPECIMEN FROM SKIN / Unknown 10/12/2022 10:02 AM CDT 10/13/2022 9:18 AM CDT Kemi Watts DO LAB - PATHOLOGY/CYTOLOGY ORDERABLES Final Result DERMATOPATHOLOGY LABORATORY [facility] - Department of Dermatology [facility] Specialized Medicine [address] [place] [address], [address] [phone] documented in this encounter Visit Diagnoses Not on filedocumented in this encounter Care Teams Box Toe Stitcher Relationship Specialty Start Date End Date Florian Gregg MD [address] [facility] [address] [facility] [address] [place] [address] PCP - General 09/10/09 documented as of this encounter
--- OUTSIDE RECORDS SUMMARY | 2024-11-27 11:28 | XMS_ITS | Clinical Summary ---
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 Encounters Date Type Department Care Team Description 11/14/2024 10:00 AM CDT Office Visit [facility] [address] [address] Samy Vela MD DeMattei, Rachael E, NETWORK ANNOUNCER, EDGE GLUE MACHINE TENDER Neuroendocrine neoplasm of lung (Primary Dx) 11/14/2024 Travel 09/12/2024 1:30 PM CDT Initial Consult [facility] [address] [phone] Elissa Nuñez LCPC Need for emotional support (Primary Dx) 09/12/2024 Travel from Last 3 Months Family History [...] Sign Reading Time Taken Comments Blood Pressure 150/90 11/14/2024 9:55 AM CDT Pulse 84 11/14/2024 9:55 AM CDT Temperature 37.1 C (98.7 F) 11/14/2024 9:55 AM CDT Respiratory Rate 18 11/14/2024 9:55 AM CDT Oxygen Saturation 99% 11/14/2024 9:55 AM CDT Inhaled Oxygen Concentration - - Weight 86.1 kg (189 lb 12.8 oz) 11/14/2024 9:55 AM CDT Height 182.9 cm (6') 11/14/2024 9:55 AM CDT Body Mass Index 25.74 11/14/2024 9:55 AM CDT Plan of Treatment Upcoming Encounters Date Type Department Care Team (Late st Contact Info) Description 02/13/2025 10:00 AM CDT Office Visit [facility] [address] [phone] [facility] [address] [place] [address] Health Maintenance Due Date Last Done [...] season) 2024 05/28/2021, 09/24/2020, 09/03/2020 Influenza Immunization (#1) 01/20/202504/21, 05/08/2020, 03/30/2018, Additional history exists Respiratory Syncytial [...] patient's age to complete this topic Insurance Care Teams Archival Studies Professor Relationship Specialty Start Date End Date Stephany Elmore PA [address] [place] [address] PCP - General Physician Electrical And Instrumentation Mechanic 06/06/24
--- OUTSIDE RECORDS SUMMARY | 2024-11-27 11:28 | XMS_ITS | Clinical Summary ---
Author Organization [facility] Address [facility] [place] [address] Care Team Providers Care Flat Lock Operator Name Role Phone Samy Vela MD Unavailable [phone] Tai Pugh MD Unavailable [phone] Silvio Haley MD Primary Care Provider [phone] Allergies Active Allergy Reactions Criticality Noted Date Comments Penicillins Hives,Rash Low 10/03/1977 Medications irbesartan (AVAPRO) 300 MG tablet Take 1 tablet (300 mg total) by mouth daily. 12/07/2013 Active Columbia-3 Fatty Acids (OMEGA-3 FISH OIL OR) Take 1 capsule by mouth daily. Active Multiple Vitamin (MULTIVITAMIN ADULT OR) Take 1 tablet by mouth daily. Active amLODIPine (NORVASC) 5 MG tablet 07/16/2024 Active triamcinolone (KENALOG) 0.1 % cream 07/16/2024 Active metoprolol succinate ER (TOPROL-XL) 50 MG 24 hr tablet Take 1 tablet (50 mg total) by mouth daily. 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 [place] [address] Carmelo Nina MD Discharge Disposition: Home or Self Care (Routine Discharge) 11/06/2024 Travel from Last 3 Months Family History Medical History Relation Comments Hypertension Father Hypertension Mother Cancer Sister Breast Cancer Relation Status Comments Father Mother Sister Social History Tobacco Use Types Packs/Day Years Used Date Smoking Tobacco: Never Passive Smoke Exposure: Yes Smokeless Tobacco: Never Tobacco Cessation:Counseling Given: Yes Alcohol Use Standard Drinks/Week Comments Yes 10 (1 standard drink = 0.6 oz pu re alcohol) [facility] Utilities Answer Date Recorded In the past 12 months has [facility] Always Prepped gas, oil, or water [employer] threatened to shut off services in your [...] any time in the past 12 [address] [facility], were you homeless or living in a care home (including now)? No 07/20/2024 Sex and Gender Information Value Date Recorded Sex Assigned at Male 10/03/2023 7:55 AM CDT Legal Sex Male 7:30 PM CDT Gender Identity Male 10/03/2023 7:55 AM CDT Sexual Orientation Not on file Last Filed Vital Signs Vital Sign Reading Time Taken Comments Blood Pressure 156/90 11/26/2024 10:19 AM CDT Pulse 74 11/26/2024 10:19 AM CDT Temperature 36.8 C (98.3 F) 11/26/2024 10:19 AM CDT Respiratory Rate 18 11/26/2024 10:19 AM CDT Oxygen Saturation 96% 11/26/2024 10:19 AM CDT Inhaled Oxygen Concentration - - Weight 87.1 kg (192 lb) 11/26/2024 10:19 AM CDT Height 180.3 cm (5' 11) 11/26/2024 10:19 AM CDT Body Mass Index 26.78 11/26/2024 10:19 AM CDT Plan of Treatment Upcoming Encounters Date Type Department Care Team (Late st Contact Info) Description 02/06/2025 9:40 AM CDT Office Visit [facility] - [address] [place] [phone] Tai Pugh MD [address] [facility] [address] [place] [address] 05/08/2025 8:00 AM SPEAKER WIRER Appointment [place] [address] [facility] [address] Carmelo Nina MD [facility] [address] [place] [address] 05/20/2025 8:45 AM SPEAKER WIRER Office Visit [facility] [address] [place] [address] Carmelo Nina MD Three [facility] [address] [place], [place] [phone] Health Maintenance Due Date Last Done Comments Colorectal Cancer Screening Colonoscopy (10 Years) 1965 Annual Physical 1968 Hepatitis C 09/14/1983 Pneumococcal Vaccine: 50+ Years (1 of 1 - PCV) 09/14/2015 Zoster Vaccines (1 of 2) 09/14/2015 COVID-19 Vaccine (4 - 2023-2 5 season) 2024 05/28/2021, 09/24/2020, 09/03/2020 PHQ-2 (Physician [place]) 05/22/2024 DTaP, Tdap and Td Vaccines ( 2 - Td or Tdap) 03/30/2028 03/30/2018 Meningococcal B Vaccine Aged Out No l onger eligible based on patient's age to complete this topic Meningococcal Vaccine Aged Out No christelle dandre eligible based on patient's age to complete this topic RSV Immunizations Under 20 Months Aged Out No longer eligible b ased on patient's age to complete this topic Goals Goal Patient Goal Type Associated Problems Recent Progress Patient-Stated? 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 Interval postsurgical changes of partial right pulmonary resection. 2. No evidence of residual or recurrent mass. 3. No evidence of metastatic disease or lymphadenopathy. Referred By: CARMELO NINA Interpreted By: Brandon Ochoa DO, 11/17/2024 3:35 PM Narrative 11/17/2024 3:46 PM CDT [place] [address] EXAMINATION: CT chest with contrast HISTORY: History of lung cancer status post partial right lobectomy. Follow-up/surveillance. COMPARISON: Chest x-ray 08/05/2024. CT chest 04/12/2024. PET CT 01/02/2024. TECHNIQUE: Axial CT images of the chest after the uneventful intravenous administration of 100 mL of Isovue-370 given through the right antecubital fossa. Sagittal and coronal reformatted image sets. A dose lowering technique was used for this procedure, which may include, but is not limited to, dose reduction technique, automated exposure control, the use of degenerative reconstruction, and ALARA/image gently techniques. FINDINGS: Lungs: There are interval postsurgical changes of partial right pulmonary resection. The previously seen multilobulated nodular density within the right lower lung is no longer present and has been surgically resected. There are associated biopsy clips. There are expected postoperative findings within the right lung with thin linear areas of scarring/atelectasis. No evidence of residual or recurrent mass. No evidence of pneumonia, pleural effusion, or pneumothorax. The left lung is grossly clear. No evidence of pulmonary metastatic disease. Mediastinum: The heart size is borderline. There is no pericardial effusion. No mediastinal or hilar lymphadenopathy. Normally sized lymph nodes are noted. No evidence of pneumomediastinum. The aorta appears normal caliber. Extrathoracic soft tissues: No axillary lymphadenopathy. Normally sized lymph nodes are noted. No acute appearing extrathoracic soft tissue abnormalities. Upper abdomen: No visible acute findings within the partially imaged upper abdomen. Osseous: No acute osseous abnormalities are identified. Procedure Note Brandon Ochoa DO - 11/17/2024 [facility] [address] [place], [place] [address] EXAMINATION: CT chest with contrast HISTORY: History of lung cancer status post partial right lobectomy.Follow- up/surveillance. COMPARISON: Chest x-ray 08/05/2024. CT chest 04/12/2024. PET CT 01/02/2024. TECHNIQUE: Axial CT images of the chest after the uneventful intravenousadministration of 100 mL of Isovue-370 given through the right antecubitalfossa. Sagittal and coronal reformatted image sets. A dose lowering technique was used for this procedure, which may include,but is not limited to, dose reduction technique, automated exposurecontrol, the use of degenerative reconstruction, and ALARA/image gentlytechniques. FINDINGS: Lungs: There are interval postsurgical changes of partial right pulmonaryresection. The previously seen multilobulated nodular density within theright lower lung is no longer present and has been surgically resected.There are associated biopsy clips. There are expected postoperativefindings within the right lung with thin linear areas ofscarring/atelectasis. No evidence of residual or recurrent mass. Noevidence of pneumonia, pleural effusion, or pneumothorax. The left lungis grossly clear. No evidence of pulmonary metastatic disease. Mediastinum: The heart size is borderline. There is no pericardialeffusion. No mediastinal or hilar lymphadenopathy. Normally sized lymphnodes are noted. No evidence of pneumomediastinum. The aorta appearsnormal caliber. Extrathoracic soft tissues: No axillary lymphadenopathy. Normally sizedlymph nodes are noted. No acute appearing extrathoracic soft tissueabnormalities. Upper abdomen: No visible acute findings within the partially imaged upperabdomen. Osseous: No acute osseous abnormalities are identified. IMPRESSION: 1. Interval postsurgical changes of partial right pulmonary resection. 2. No evidence of residual or recurrent mass. 3. No evidence of metastatic disease or lymphadenopathy. Referred By: CARMELO NINA Interpreted By: Brandon Ochoa DO, 11/17/2024 3:35 PM Carmelo Nina MD CT Final Result from Last 3 Months Insurance [employer] [facility] Advance Directives * Full Code (Latest Code Status on File) Date Activated Date Inactivated Comments 07/17/2024 12:08 PM 07/27/2024 2:17 PM Care Teams Flat Lock Operator Relationship Specialty Start Date End Date Silvio Haley MD [address] [place] [id number] PCP - General FAMILY PRACTICE 08/05/24 Samy Vela MD [address] [place] [address] Consulting Physician HEMATOLOGY/ONCOLOGY 07/15/24 Tai Pugh MD [address] [place] [address] Consulting Physician PULMONARY DISEASE 07/15/24
--- OUTSIDE RECORDS SUMMARY | 2024-11-27 11:28 | XMS_ITS | Encounter Summary ---
Author Organization [facility] Address [address] [facility] [place] [address] Care Team Providers Care Historical Guide Name Role Phone Florian Gregg MD Primary Care Provider [phone] Encounter Details Date Type Department Care Team (Late st Contact Info) Description 06/06/2023 Lab Requisition [facility] - DermPath Lab [address] [facility], [facility] [place] [address] Jaci Teixeira MD [address] 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 Gender Identity Not on file Sexual Orientation Not on file documented as of this encounter Plan of Treatment Not on file documented as of this encounter Procedures Procedure Name Priority Date/Time Associated Diagnosis Comments DERMATOPATHOLOGY Routine 06/06/2023 10:0 6 AM SHEET METAL SUPERVISOR documented in this encounter Results * DERMATOPATHOLOGY (06/06/2023 10:06 AM SHEET METAL SUPERVISOR) Case Report Dermatopathology Report Case: [id number] Authorizing Provider: Jaci Teixeira MD Collected: 06/06/2023 10:06 AM Ordering Location: [facility] DermPath Lab Received: 06/07/2023 07:34 AM Pathologist: Rosa Hart MD Specimen: Skin, right forearm 11:04 AM SHEET METAL SUPERVISOR DERMATOPATHOLOGY LABORATORY Final Diagnosis Specimen A. SKIN, right forearm: SOLAR LENTIGO (L81.4) 11:04 AM [facility] DERMATOPATHOLOGY LABORATORY at [address] [facility] Clinical History R/O Melanoma Nevus Irregular Color 11:04 AM [facility] DERMATOPATHOLOGY LABORATORY Gross Description Specimen A: Received is one formalin filled container labeled with the patient's name and designated right forearm. The specimen consists of a shave biopsy measuring 6x3x1 mm. Jar 0. 11:04 AM [facility] DERMATOPATHOLOGY LABORATORY Microscopic Description Specimen A. SKIN, right forearm: There is orthokeratosis. There is a slight increase in epidermal thickness with lentiginous buds of hyperpigmented keratinocytes. The number of melanocytes is only mildly increased. In the dermis, there is basophilic degeneration of elastic fibers. 11:04 AM [facility] DERMATOPATHOLOGY LABORATORY Disclaimer An external and internal positive and negative controls are appropriate for the histochemical, immunohistochemical and immunofluorescence stain(s) in this case (if any), except where stated explicitly. The performance characteristics of the stain(s) cited in this report were developed and its performance characteristic determined by the Dermatopathology Laboratory at [facility], directed by Dr. Chana Heard. These tests need not be, and therefore are not, approved by the [place] Food and Drug Administration. The tests are used for clinical purposes. Billing Codes Specimen Charges Stain Charges 82082 1 11:04 AM [facility] DERMATOPATHOLOGY LABORATORY Embedded Images 11:04 AM [facility] DERMATOPATHOLOGY LABORATORY Pathology/Cytolo gy TISSUE SPECIMEN FROM SKIN / Unknown 06/06/2023 10:06 AM SHEET METAL SUPERVISOR 06/07/2023 7:34 AM [facility] us Jaci Teixeira MD LAB - PATHOLOGY/CYTOLOGY OR DERABLES Final Result DERMATOPATHOLOGY LABORATORY [facility] - Department of Dermatology [address], [address] [phone] documented in this encounter Visit Diagnoses Not on filedocumented in this encounter Care Teams Historical Guide Relationship Specialty Start Date End Date Florian Gregg MD [address] [place] [phone] PCP - General 09/10/09 documented as of this encounter
--- OUTSIDE RECORDS SUMMARY | 2024-11-27 11:28 | XMS_ITS | Encounter Summary ---
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 [facility] [address] [place] [address] Phone: tel: fax: Referral ID Status Reason Start Date Expiration Date V isits Requested Visits Authorized [id number] New Request 11/26/2024 11/26/2025 1 1 Reason for Visit * Reason Comments Follow Up 07/17/24 Right Lower Lobectomy Encounter Details Date Type Department Care Team (Late st Contact Info) Description 11/26/2024 10:30 AM CDT Office Visit Yuan Elizondo-Andre bourgeois [facility], [address] [place] [address] Carmelo Nina MD [facility]. [address] [place] [address] Follow Up (07/17/24 Right Lower Lobectomy ) Social History Tobacco Use Types Packs/Day Years Used Date Smoking Tobacco: Never Passive Smoke Exposure: Yes Smokeless Tobacco: Never Alcohol Use Standard Drinks/Week Comments Yes 10 (1 standard drink = 0.6 oz pu re alcohol) [facility] Utilities Answer Date Recorded In the past 12 months has th e [employer], [employer], oil, or water [employer] threatened to shut off services in your [...] any time in the past 12 m [facility], were you homeless or living in a custodial (including now)? No 07/20/2024 Sex and Gender Information Value Date Recorded Sex Assigned at Male 10/03/2023 7:55 AM CDT Legal Sex Male 7:30 PM CDT Gender Identity Male 10/03/2023 7:55 AM CDT Sexual Orientation Not on file documented as of this encounter Last Filed Vital Signs Vital Sign Reading [...] Mass Index 26.78 11/26/2024 10:19 AM CDT documented in this encounter Functional Status * Are you deaf or do you have serious difficulty hearing Answer Date of Assessment Author Status No 07/20/2024 12:00 AM Carlyn Reese RN Active * Are you blind or do you have serious difficulty seeing, even when wearing glasses? Answer Date of Assessment Author Status No 07/20/2024 12:00 AM Carlyn Reese RN Active * Do you have serious difficulty walking or climbing stairs? Answer Date of Assessment Author Status No 07/20/2024 12:00 AM Carlyn Reese RN Active * Do you have difficulty dressing or bathing? Answer Date of Assessment Author Status No 07/20/2024 12:00 AM Carlyn Reese, RN Active * Because of a physical, [...] Reese RN Active documented in this encounter Progress Notes * Carmelo Nina MD - 11/26/2024 10:30 AM CDTSummary: Routine surgical follow-up status post right lower lobectomy. Images from the original note were not included. [place], [place] [address] Reason for Visit: Follow Up (07/17/24 Right Lower Lobectomy ) History of Present Illness: Mr. Nunze comes to my office again today in follow- up status post rightlower lobectomy on July 17, 2024 for typical carcinoid. He did very well with surgery and sees his oncologist, Dr. Cadena regularly following the procedure. He had developed an ileus following his surgery which extended his hospitalization but did not require surgical exploration. He is very active and continues to walk several miles a day. On today's visit he has no complaints to report. Hisvital signs show a regular pulse in the 70s and a blood pressure of about 150/90. He says on his digital blood pressure cuff at home which he takes regularly his blood pressure is usually between 120/75 and 135/87. His room air oxygen saturation is 96%. He is back on all of his antihypertensives, but is fairly stressed on today's visit for some reason. His thoracotomy incision is well healed without defect, instability, or evidence of infection or hematoma. His breath sounds are equal bilaterally. There are no murmurs. His abdomen is benign. He has no pedal edema. He had a recent chest CT which revealed expected postoperative findings, no evidence of pneumothorax, and no appreciable effusion. Recommendations and Plan: I again reviewed his pathology with him and we discussed the low malignant potential of his carcinoid tumor. He understands from his conversations with myself and his oncologist that close follow-up will be required for the next few years. As such, we re-discussed seeing each other regularly, but given the low malignant potential of carcinoid, we agreed on seeing each other every 6 months for another year and then yearly out to 5 years. He voiced understanding. He is very pleased with his outcome. I will see him again in 6 months time with a chest CT with IV contrast. Medications: Current Outpatient Medications: amLODIPine (NORVASC) 5 MG tablet, , Disp: , Rfl: irbesartan (AVAPRO) 300 MG tablet, Take 1 tablet (300 mg total) by mouth daily., Disp: , Rfl: metoprolol succinate ER (TOPROL-XL) 50 MG 24 hr tablet, Take 1 tablet (50 mg total) by mouth daily., Disp: 90 tablet, Rfl: 1 Multiple Vitamin (MULTIVITAMIN ADULT OR), Take 1 tablet by mouth daily., Disp: , Rfl: [place]-3 Fatty Acids (OMEGA-3 FISH OIL OR), Take 1 capsule by mouth daily., Disp: , Rfl: triamcinolone (KENALOG) 0.1 % cream, , Disp: , Rfl: Results for orders placed during the hospital encounter of 11/06/24 CT CHEST W CON Narrative [place] [id number] EXAMINATION: CT chest with contrast HISTORY: History [...] changes of partial right pulmonary resection. The previouslyseen multilobulated nodular density within the right lower [...] are noted. No evidence of pneumomediastinum. The aortaappears normal caliber. Extrathoracic soft tissues: No axillary [...] By: Brandon Ochoa DO, 11/17/2024 3:35 PM Lab Results Component Value Date NA 131 (L) 07/27/2024 K 3.7 07/27/2024 CL 100 07/27/2024 CO2 26.9 07/27/2024 BUN 9 07/27/2024 CR 0.90 07/27/2024 GFREST >90 07/27/2024 Lab Results Component Value Date WBC 10.67 07/27/2024 HGB 13.1 (L) 07/27/2024 HCT 39.2 (L) 07/27/2024 PLT 258 07/27/2024 No data to display No results found for: HGBA1C Allergies Allergen Reactions Penicillins Hives and Rash Past Medical History[1] Past Surgical History[2] Social History[3] Family History[4] Family Status Relation Name Status Mother Evangelina Nunez (Not Specified) Father Gareth Nunez (Not Specified) Sister Gricel Tidwell (Not Specified) No partnership data on file Review of Systems Constitutional: Negative for recent unintentional weight gain, recent unintentional weight loss andnew or significant fatigue. HENT: Negative for new or significant hearing loss. Eyes: Negative for blurred vision and double vision. Respiratory: Negative for cough, new or significant shortness of breath and snoring. Cardiovascular: See HPI. Gastrointestinal: Negative for blood in stool and melena. Genitourinary: Negative for dysuria. Musculoskeletal: Negative for myalgias and new or worsening joint stiffness/pain. Skin: Negative for rash. Neurological: Negative for tingling/numbness and focal weakness. Endo/Heme/Allergies: Negative for new or significant bruising/bleeding and polydipsia. Psychiatric/Behavioral: Negative for depression and new or significant memory loss. Vitals: 11/26/24 1019 Pulse: 74 Body mass index is 26.78 kg/m??. Physical Exam Constitutional: Healthy appearance. HENT: Eyes: Neck: Pulmonary: Effort normal. Breath sounds normal. Abdomen: Abdomen soft. Bowel sounds normal. Neurological: Alert. Oriented x 3. Appropriate mood and affect. Skin: Dry. Warm. Musculoskeletal: Normal ROM. Cardiovascular: Rate: Regular rhythm and Normal rate. PMI: Pulses: Negative for edema. Heart Sounds: Normal heart sounds. Cardiovascular Comments: Diagnoses/Impression: 1. Malignant carcinoid tumor of lung ([facility] HHS/[facility]) Referring Provider: No ref. provider found PCP: NOHELIA HALEY MD [1] Past Medical History: Diagnosis Date Hyperlipidemia Hypertension 08/2017 Malignant carcinoid tumor of lung ([facility] HHS/HCC) [2] Past Surgical History: Procedure Laterality Date BRONCHOSCOPY SHOULDER ARTHROSCOPY/SURGERY Left SKIN BIOPSY THORACOTOMY Right 07/17/2024 RIGHT THORACOTOMY WITH LYMPH NODE SAMPLING, RIGHT LOWER LOBECTOMY, RIB BLOCKS [3] Social History Tobacco Use Smoking status: Never Passive exposure: Yes Smokeless tobacco: Never Vaping Use Vaping status: Never Used Substance Use Topics Alcohol use: Yes Alcohol/week: 10.0 standard drinks of alcohol Types: 6 Cans of beer per week Drug use: Not Currently Types: Cocaine, Marijuana [4] Family History Problem Relation Name Age of Onset Hypertension Mother Evangelina Nunez Hypertension Father Gareth Nunez Cancer Sister Gricel Tidwell Breast Cancer documented in this encounter Plan of Treatment Upcoming Encounters Date Type Department Care Team (Late st Contact Info) Description 02/06/2025 9:40 AM CDT Office Visit [facility] - [address] [place] [address] Tai Pugh MD [facility] [address] [place] [address] 05/08/2025 8:00 AM CERTIFIED CAREGIVER Appointment [facility] [place] [address] Carmelo Nina MD [facility]. [address] [place] [address] 05/20/2025 8:45 AM CERTIFIED CAREGIVER Office Visit [facility], [address] [place] [address] Carmelo Nina MD [facility]. 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
[2024-11-27 11:55] LABS: Hematocrit 40.5 % (42.0-52.0); Hemoglobin 13.7 g/dL (14.0-18.0); Immature Granulocyte Percent A 0.4 % (0-0.5); Lymphocytes Absolute Auto 2.00 K/mm3 (0.9-3.2); Mean Corpuscular HGB Conc 33.8 g/dl (32-36); Mean Corpuscular Hemoglobin 29.5 pg (26-34); Mean Corpuscular Volume 87.1 fl (80-100); Nucleated Red Blood Cells Absolute Auto 0.000 K/mm3 (0.0-0.012); Nucleated Red Blood Cells Perc 0.0 % (0.0-0.2); Platelet Count Result 160 k/mm3 (150-375); Red Blood Count 4.65 M/mm3 (4.6-6.20); White Blood Count 5.6 K/mm3 (4.5-10.0)
== END 2024-11-27 11:26 | disposition home or self-care (01) ==
LOC: ANHLAB 11:25
PROVIDERS: PCP Family Medicine; Visit Provider Surgery
DX: L08.9 Local infection of the skin and subcutaneous tissue, unspecified (principal); B95.62 Methicillin resistant Staphylococcus aureus infection as the cause of diseases classified elsewhere; S71.002A Unspecified open wound, left hip, initial encounter; X58.XXXA Exposure to other specified factors, initial encounter
CPT/HCPCS: 36415; 85025

== ENCOUNTER 2024-12-12 09:52 | Outpatient (CLI) | payer OTHER, SELFPAY ==
--- OUTSIDE RECORDS SUMMARY | 2024-12-12 09:57 | XMS_ITS | Encounter Summary ---
Author Organization [facility] Address [address] [facility] [place] [address] Care Team Providers Care Head Of Housekeeping Name Role Phone Florian Gregg MD Primary Care Provider [phone] Encounter Details Date Type Department Care Team (Late st Contact Info) Description 06/06/2023 Lab Requisition [facility] - DermPath Lab [address] [facility], [facility] [place] [address] Jaci Teixeira MD [address] [facility] [address] [place] [address] Social History Tobacco Use Types Packs/Day Years Used Date Smoking Tobacco: Never Assessed Sex and Gender Information Value Date Recorded Sex Assigned at Not on file Legal Sex Male 6:29 PM FIRST SAMPLER Gender Identity Not on file Sexual Orientation Not on file documented as of this encounter Plan of Treatment Not on file documented as of this encounter Procedures Procedure Name Priority Date/Time Associated Diagnosis Comments DERMATOPATHOLOGY Routine 06/06/2023 10:0 6 AM FIRST SAMPLER documented in this encounter Results * DERMATOPATHOLOGY (06/06/2023 10:06 AM FIRST SAMPLER) Case Report Dermatopathology Report Case: [id number] Authorizing Provider: Jaci Teixeira MD Collected: 06/06/2023 10:06 AM Ordering Location: [facility] DermPath Lab Received: 06/07/2023 07:34 AM Pathologist: Rosa Hart MD Specimen: Skin, right forearm 11:04 AM FIRST SAMPLER DERMATOPATHOLOGY LABORATORY Final Diagnosis Specimen A. SKIN, right forearm: SOLAR LENTIGO (L81.4) 11:04 AM [facility] DERMATOPATHOLOGY LABORATORY at [address] [facility] Clinical History R/O Melanoma Nevus Irregular Color 11:04 AM [facility] DERMATOPATHOLOGY LABORATORY Gross Description Specimen A: Received is one formalin filled container labeled with the patient's name and designated right forearm. The specimen consists of a shave biopsy measuring 6x3x1 mm. Jar 0. 11:04 AM [facility] DERMATOPATHOLOGY LABORATORY Microscopic Description Specimen A. SKIN, right forearm: There is orthokeratosis. There is a slight increase in epidermal thickness with lentiginous buds of hyperpigmented keratinocytes. The number of melanocytes is only mildly increased. In the dermis, there is basophilic degeneration of elastic fibers. 11:04 AM [facility] DERMATOPATHOLOGY LABORATORY Disclaimer An external and internal [...] purposes. Billing Codes Specimen Charges Stain Charges 38896 1 11:04 AM [facility] DERMATOPATHOLOGY LABORATORY Embedded Images 11:04 AM [facility] DERMATOPATHOLOGY LABORATORY Pathology/Cytolo gy TISSUE SPECIMEN FROM SKIN / Unknown 06/06/2023 10:06 AM FIRST SAMPLER 06/07/2023 7:34 AM [facility] us Jaci Teixeira MD LAB - PATHOLOGY/CYTOLOGY OR DERABLES Final Result DERMATOPATHOLOGY LABORATORY [facility] - Department of Dermatology [address], [address] [phone] documented in this encounter Visit Diagnoses Not on filedocumented in this encounter Care Teams Head Of Housekeeping Relationship Specialty Start Date End Date Florian Gregg MD [address] [place] [address] PCP - General 09/10/09 documented as of this encounter
--- OUTSIDE RECORDS SUMMARY | 2024-12-12 09:57 | XMS_ITS | Referral Summary ---
Author Organization [facility] [address] Address [address] [place] [address] Care Team Providers Care Labor Employment Associate Name Role Phone Silvio Haley MD Primary Care Provider [phone] Social History Tobacco Use Types Packs/Day Years Used Date Smoking Tobacco: Never Assessed Personal Safety Answer Date Recorded Getting School Help Needed Not on file 08/05 Sex and Gender Information Value Date Recorded Sex Assigned at Not on file Legal Sex Male 1:38 AM FOOTBALL SCOUT Gender Identity Not on file Sexual Orientation Not on file Plan of Treatment Not on file Insurance [facility] Care Teams Labor Employment Associate Relationship Specialty Start Date End Date Silvio Haley MD [address] [place] [id number] PCP - General Family Medicine 06/13/19
--- OUTSIDE RECORDS SUMMARY | 2024-12-12 09:57 | XMS_ITS | Encounter Summary ---
Author Organization [facility] Address [address] [facility] [place] [address] Care Team Providers Care Paper Testing Supervisor Name Role Phone Florian Gregg MD Primary Care Provider [phone] Encounter Details Date Type Department Care Team (Late st Contact Info) Description 10/12/2022 Lab Requisition [facility] - DermPath Lab [address] [facility], [facility] [place] [phone] Kemi Watts DO [address] [facility] 3 DEPT [place] [address] Social History Tobacco Use Types Packs/Day Years Used Date Smoking Tobacco: Never Assessed Sex and Gender Information Value Date Recorded Sex Assigned at Not on file Legal Sex Male 6:29 PM 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 Gender Identity Not on file Sexual Orientation Not on file documented as of this encounter Plan of Treatment Not on file documented as of this encounter Procedures Procedure Name Priority Date/Time Associated Diagnosis Comments DERMATOPATHOLOGY Routine 10/12/2022 10:0 2 AM CDT documented in this encounter Results * DERMATOPATHOLOGY (10/12/2022 10:02 AM CDT) Case Report Dermatopathology Report Case: [id number] Authorizing Provider: Kemi Watts DO Collected: 10/12/2022 10:02 AM Ordering Location: [facility] Derm[facility] Lab Received: 10/13/2022 09:18 AM Pathologist: [...] characteristic determined by the Dermatopathology Laboratory at [facility], directed by Dr. Chana Heard. These tests need not be, and therefore are not, approved by the [place] Food and Drug Administration. The tests are used for clinical purposes. Billing Codes Specimen Charges Stain Charges 89611 1 3 5:32 PM CDT DERMATOPATHOLOGY LABORATORY Embedded Images 3 5:32 PM CDT DERMATOPATHOLOGY LABORATORY Pathology/Cytolo gy TISSUE SPECIMEN FROM SKIN / Unknown 10/12/2022 10:02 AM CDT 10/13/2022 9:18 AM CDT Kemi Watts DO LAB - PATHOLOGY/CYTOLOGY ORDERABLES Final Result DERMATOPATHOLOGY LABORATORY [facility] - Department of Dermatology [facility] Special[facility] [address] [place] [address], [address] [phone] documented in this encounter Visit Diagnoses Not on filedocumented in this encounter Care Teams Paper Testing Supervisor Relationship Specialty Start Date End Date Florian Gregg MD [address] [facility] [address] [facility] [address] [place] [address] PCP - General 09/10/09 documented as of this encounter
--- OUTSIDE RECORDS SUMMARY | 2024-12-12 09:57 | XMS_ITS | Clinical Summary ---
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
--- OUTSIDE RECORDS SUMMARY | 2024-12-12 09:57 | XMS_ITS | Clinical Summary ---
Author Organization [facility] Address [address] [place] [address] Care Team Providers Care Kaiawhina Name Role Phone Florian Gregg MD Primary Care Provider [phone] Source Comments [facility],non-owned Affiliates and Associated Physician Practices is amultiple site organization consisting of ambulatory clinics and hospital sitesin [place], [place], [place] and [place]. This disclosure is being madepursuant to the Care Everywhere program and may not contain all information available regarding this patient. 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
--- OUTSIDE RECORDS SUMMARY | 2024-12-12 09:57 | XMS_ITS | Clinical Summary ---
Author Organization [facility] Address [address], [address] [place] [address] Phone Care Team Providers Care Sheet Metal Welder Name Role Phone Stephany Elmore Primary Care Provider [phone] Allergies Active Allergy Reactions Criticality Noted Date [...] CDT Office Visit [facility] [address] [address] Samy Vela MD DeMattei, Rachael E, ADVISORY SOFTWARE ENGINEER, NEAR EASTERN ARCHAEOLOGY LECTURER Neuroendocrine neoplasm of lung (Primary Dx) 11/14/2024 Travel 09/12/2024 1:30 PM CDT Initial Consult [facility] [address] [phone] Elissa Nuñez LCPC Need for emotional support [...] CDT Office Visit [facility] [address] [phone] [facility] [address] [place] [address] Health Maintenance Due Date Last Done [...] to complete this topic Insurance Care Teams Sheet Metal Welder Relationship Specialty Start Date End Date Stephany Elmore PA [address] [place] [id number] PCP - General Physician Flat Bed Knitter 06/06/24
[2024-12-12 10:23] LABS: Hematocrit 43.6 % (42.0-52.0); Hemoglobin 14.7 g/dL (14.0-18.0); Immature Granulocyte Percent A 0.2 % (0-0.5); Lymphocytes Absolute Auto 1.91 K/mm3 (0.9-3.2); Mean Corpuscular HGB Conc 33.7 g/dl (32-36); Mean Corpuscular Hemoglobin 29.5 pg (26-34); Mean Corpuscular Volume 87.4 fl (80-100); Nucleated Red Blood Cells Absolute Auto 0.000 K/mm3 (0.0-0.012); Nucleated Red Blood Cells Perc 0.0 % (0.0-0.2); Platelet Count Result 192 k/mm3 (150-375); Red Blood Count 4.99 M/mm3 (4.6-6.20); White Blood Count 5.4 K/mm3 (4.5-10.0)
== END 2024-12-12 09:53 | disposition home or self-care (01) ==
LOC: ANHLAB 09:53
PROVIDERS: PCP Family Medicine; Visit Provider Surgery
DX: S71.002A Unspecified open wound, left hip, initial encounter (principal); L08.9 Local infection of the skin and subcutaneous tissue, unspecified; B95.62 Methicillin resistant Staphylococcus aureus infection as the cause of diseases classified elsewhere; X58.XXXA Exposure to other specified factors, initial encounter
CPT/HCPCS: 36415; 85025